=== PATIENT | male | born 1970 | race Caucasian/White ===

== ENCOUNTER 2020-08-28 10:27 | Outpatient (REF) | payer OTHER, SELFPAY | END 2020-08-28 10:28 | disposition home or self-care (01) | LOC: HO.LAB 10:27 | PROVIDERS: Visit Provider Internal Medicine | DX: Z20.828 Contact with and (suspected) exposure to other viral communicable diseases (principal) | CPT/HCPCS: 87635 ==

== ENCOUNTER 2024-08-03 15:56 | Outpatient (AMB) | payer OTHER, SELFPAY ==
--- NOTE | 2024-08-03 15:58 | AM.OFFWIN_ITS ---
Intake Vital Signs 08/03/24 16:00 Height 5 ft 7 in Weight 168 lb BMI 26.3 BP 140/80 H Blood Pressure Location Lt brachial Position Sitting Pulse 91 Pulse Source Pulse Oximeter Pulse Oximetry (%) 98 Oxygen Delivery Method Room Air Intake Visit Reasons: NUTRITIONALIST- urine infection Intake Note: Patient here for UTI that has been present for about 2 days. Pt would also like to talk about hernia in groin area that has been present for a few years and is having difficulty walking because of it. Patient Tobacco Use Status: Former Tobacco user Allergies No Known Allergies Allergy (Verified 08/03/24 16:05) Do you need a note to return to daycare/school/sports/work: No HPI HPI Comments History of Present Illness Details 53 y/o male patient who presents to the walk in clinic with c/o Urinary symptoms x 2 days. Pt is accompanied by his Son who provides translation and history. Pt also has a Large ?? Groin Hernia or Hydrocele for many years now (?10 years of more). He is having difficulty with urinating and walking due to this. He was briefly admitted at [facility] but left without being seen due to the long wait. He just moved from [place] and currently has no PCP established. He is having problems securing a new doctor, and has to wait for months for appointment. Not much medical history given or available on him. [facility] Social History Patient Tobacco Use Status: Former Tobacco user Review of Systems Const All systems reviewed & are unremarkable except as noted in HPI and below Physical Exam Vital Signs: Last Vital Signs Pulse 91 08/03/24 16:00 BP 140/80 H 08/03/24 16:00 Pulse Ox 98 08/03/24 16:00 Oxygen Delivery Method Room Air 08/03/24 16:00 BMI result Body Mass Index 26.3 Const General: cooperative and no acute distress Orientation/consciousness: patient oriented x3 Other: Pt declined examination today. There is a large Mass or bulging hernia from his Groin area - protruding through his pants. Neuro General: patient oriented x3, gait normal and moves all extremities Psych Speech and movement: Normal speech and movement present Results AMB Urinalysis, Automated UA Leukoctes 0 Cynthia/uL Last Edit by YENI Alvarado on 08/03/24 16:13 UA Nitrite Negative Last Edit by YENI Alvarado on 08/03/24 16:13 UA Urobilinogen 0.2 mg/dL Last Edit by [place] [facility] on 08/03/24 16:13 UA Protein 0 mg/dL Last Edit by [facility] on 08/03/24 16:13 UA pH 6.0 Last Edit by [place] [facility] on 08/03/24 16:13 UA Blood 0 Rambo/uL Last Edit by [place] [facility] on 08/03/24 16:13 UA Specific [place] 1.020 Last Edit by [place] [facility] on 08/03/24 16:13 UA Ketone Negative Last Edit by [place] [facility] on 08/03/24 16:13 UA Bilirubin 0 mg/dL Last Edit by [place] [facility] on 08/03/24 16:13 UA Glucose 0 mg/dL Last Edit by [place] [facility] on 08/03/24 16:13 Results Reviewed Results Reviewed: Laboratory Last Values Urine pH (Auto) 6.0 08/03/24 16:12 Specific [place] (Auto) 1.020 08/03/24 16:12 Urine Protein (Auto) 0 mg/dL 08/03/24 16:12 Glucose (UA)(Auto) 0 mg/dL 08/03/24 16:12 Urine Ketones (Auto) Negative 08/03/24 16:12 Urine Blood (Auto) 0 Rambo/uL 08/03/24 16:12 Urine Nitrite (Auto) Negative 08/03/24 16:12 Urine Bilirubin (Auto) 0 mg/dL 08/03/24 16:12 Urine Urobilinogen (Auto) 0.2 mg/dL 08/03/24 16:12 Leukocyte Esterase (Auto) 0 Cynthia/uL 08/03/24 16:12 Assessment & Plan Assessment & Plan (1) Urinary tract infection symptoms: Code(s): R39.9 - Unspecified symptoms and signs involving the genitourinary system Plan: Rapid Urinalysis negative. Pt only reports Urinary retention and difficulty voiding due to the Mass/hernia. Denies urgency, frequency or dysuria. Will try and get patient seen C[facility] at [facility] Sent Message to Mahi (senior catering sales manager). Orders: Orders AMB Urinalysis Automated Today Z13.9 - Encounter for screening, unspecified Coding Level of Care Code New Pt Level 3 (96731) Diagnoses Urinary tract infection symptoms R39.9 Time Spent (min) 15
[2024-08-03 16:00] VITALS: BP 140/80; PULSE 91; O2SAT 98; BMI 26.3
== END 2024-08-03 16:25 | disposition home or self-care (01) ==
PROVIDERS: Visit Provider Nurse Practitioner Family
DX: R39.9 Unspecified symptoms and signs involving the genitourinary system (principal); Z13.9 Encounter for screening, unspecified

== ENCOUNTER → 2024-08-03 15:56 | Outpatient (BNVA) | payer OTHER, SELFPAY | DX: R33.9 Retention of urine, unspecified (principal); R39.198 Other difficulties with micturition | CPT/HCPCS: 81003 ==

== ENCOUNTER 2025-04-15 08:55 | Outpatient (REF) | payer OTHER, SELFPAY ==
[2025-04-15 14:05] LABS: MANUAL DIFF FLAG NO
[2025-04-15 14:13] LABS: Basophils Percent Auto 0.5 % (0-2); Eosinophils Absolute Auto 0.3 X10*3/uL (0.0-0.4); Eosinophils Percent Auto 3.5 % (0-4); Hematocrit 38.9 % (42.0-52.0); Hemoglobin 12.2 g/dl (14.0-18.0); Imm Gran Abs Auto 0.04 X10*3/uL (0.00-0.03); Imm Gran Pct Auto 0.5 % (0.0-0.4); Lymphocytes Absolute Auto 2.1 X10*3/uL (1.2-4.9); Lymphocytes Percent Auto 25.1 % (20-40); Mean Corpuscular HGB Conc 31.4 g/dl (31.0-36.0); Mean Corpuscular Hemoglobin 26.8 pg (27.0-33.0); Mean Corpuscular Volume 85.3 fL (80.0-98.0); Monocytes Absolute Auto 0.8 X10*3/uL (0.1-1.2); Monocytes Percent Auto 9.5 % (2-11); Neutrophils Absolute Auto 5.2 x10*3/uL (2.0-8.3); Neutrophils Percent Auto 60.9 % (45-73); Platelet Count 419 X10*3/uL (160-400); Red Blood Count 4.56 X10*6/uL (4.60-5.80); White Blood Count 8.5 X10*3/uL (4.8-10.8)
[2025-04-15 14:22] LABS: Estimated Average Glucose 128 mg/dL; Hemoglobin A1c % 6.1 % (<6.0)
[2025-04-15 14:35] LABS: Alanine Aminotransferase 22 U/L (0-40); Albumin Level 3.9 g/dL (3.5-5.0); Alkaline Phosphatase 107 U/L (39-117); Anion Gap 10 (12-20); Aspartate Amino Transferase 26 U/L (5-37); Bilirubin Total 0.7 mg/dL (0.0-1.0); Blood Urea Nitrogen 15 mg/dL (9-16); Calcium 9.1 mg/dL (8.4-10.2); Carbon Dioxide 25 mmol/L (22-29); Chloride 106 mmol/L (96-108); Cholesterol 166 mg/dL (<200); Estimated Glomerular Filt Rate > 60; Glucose Random 107 mg/dL (60-115); HDL Cholesterol 53 mg/dL (>40); LDL Cholesterol Calculated 92 mg/dL (<100); Potassium 3.9 mmol/L (3.3-5.1); Sodium 137 mmol/L (135-145); Total Protein 8.7 g/dL (6.5-8.0); Triglycerides 108 mg/dL (<150)
[2025-04-15 14:41] LABS: PSA,Total (Free>4and<10) 3.14 ng/mL (0.00-4.00)
[2025-04-18 04:40] LABS: HIV AB/AG Nonreactive (Nonreactive); HIV Num 1 0.07 S/CO (0.00-0.99); ~HepC Num1 0.27 S/CO (0.00-0.79); ~Hepatitis C Antibody Nonreactive (Nonreactive)
== END 2025-04-15 08:56 | disposition home or self-care (01) ==
LOC: HO.CHCLDS 08:55
PROVIDERS: Visit Provider Internal Medicine
DX: Z00.00 Encounter for general adult medical examination without abnormal findings (principal); Z12.5 Encounter for screening for malignant neoplasm of prostate
CPT/HCPCS: 36415; 80053; 80061; 83036; 84153; 84443; 85025; 86803; 87389

== ENCOUNTER 2025-05-17 11:08 | Outpatient (AMB) | payer OTHER, SELFPAY ==
--- NOTE | 2025-05-17 11:20 | A.OFFVIS_ITS ---
Vital Signs 3 05/17/25 11:29 Height 5 ft 7 in Weight 180 lb BMI 28.2 BP 164/83 H Blood Pressure Location Lt brachial Position Sitting Pulse 92 Intake Visit Reasons: ingunial hernia Intake Note: Patient is seen in office for evaluation and treatment of a a left inguinal hernia. Pt c/o: onset yrs, use to work in construction, lump left groin increase/decrease, denies n/v/d/c, no imaging, has not seen a PCP in yrs Imaging: [facility] Creative Coordinator Required: Yes Creative Coordinator Services: Creative Coordinator Offered & Declined Accompanied by: Spouse Allergies No Known Allergies Allergy (Verified 05/17/25 11:27) Medication List - Last Reconciled 05/17/25 by Juan Jose Loaiza MD No Known Home Meds HPI Comments Details: 54-year-old male patient presenting for evaluation of a large left inguinal hernia. The hernia has been present for least 10 years and has gradually increased in size. 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 He notes the lump all the time especially with standing or sitting. The hernia does not completely decrease in size when in the supine position. He denies problems with nausea, vomiting, diarrhea, or constipation. He denies any previous history of hernia surgery. He does report recently having a positive Cologuard test in his awaiting evaluation by Gastroenterology to arrange a colonoscopy. He presents today to discuss repair of this large left inguinal hernia. [facility] Family History Father Cancer of unknown origin Brother Prostate cancer Social History Alcohol intake: never Patient Tobacco Use Status: Former Tobacco user Review of Systems Const All systems reviewed & are unremarkable except as noted in HPI and below Physical Exam Const General: cooperative and no acute distress Nutritional Appearance: well nourished Orientation/consciousness: patient oriented x3 Limitations: no limitations HEENT Head: Yes normocephalic and Yes atraumatic Ears: hearing grossly normal bilaterally Resp Effort & Inspection: normal respiratory effort, no audible wheezes, no cough and no respiratory distress Cardio Jugular venous distension: no JVD GI Inspection: Yes normal to inspection Palpation (GI): Soft to palpation, nontender, no guarding, not rigid, No hepatosplenomegaly present and Hernia present direct inguinal on the left (Non reducible) Percussion: Yes normal to percussion Auscultation: normal bowel sounds Rectal Exam - Male: Yes deferred Abdomen image: 2 1. Very large non reducible (incarcerated) left inguinal hernia extending into the scrotal sac Skin Other: Warm, dry, no rash Neuro General: patient oriented x3 Extrem General: Yes no clubbing, cyanosis or edema Assessment & Plan Assessment & Plan (1) Positive colorectal cancer screening using Cologuard test: Code(s): R19.5 - Other fecal abnormalities Category: Medical (2) Incarcerated left inguinal hernia: Code(s): K40.30 - Unilateral inguinal hernia, with obstruction, without gangrene, not specified as recurrent Category: Medical Plan 54-year-old male patient presenting with a longstanding left inguinal hernia which has become quite large and non reducible. There appears to be a large amount of colon within this hernia sac to the point where there may be loss of domain. Patient also reports a positive Cologuard test and needs evaluation by Gastroenterology. I have placed an urgent request for gastroenterology consultation to expedite evaluation for colonoscopy which needs to be completed prior to repair of this exceptionally large inguinal hernia. In addition I would like to obtain a CT abdomen and pelvis with oral contrast to better evaluate the contents of the left inguinal hernia. After discussion of the procedure, risks, and alternatives, the patient does consent to repair of this large left inguinal hernia with mesh. Orders: Orders 2 CT abdomen pelvis wo IV con Today K40.30 - Unilateral inguinal hernia, with obstruction, without gangrene, not specified as recurrent, R19.5 - Other fecal abnormalities Referrals 2 Gastroenterology Referral K40.30 - Unilateral inguinal hernia, with obstruction, without gangrene, not specified as recurrent, R19.5 - Other fecal abnormalities, Z12.11 - Encounter for screening for malignant neoplasm of colon Coding Level of Care Code New Pt Level 4 (80001) Diagnoses Positive colorectal cancer screening using Cologuard test R19.5 Incarcerated left inguinal hernia K40.30
[2025-05-17 11:29] VITALS: BP 164/83; PULSE 92; BMI 28.2
--- OUTSIDE RECORDS SUMMARY | 2025-05-17 12:33 | XMS_ITS | Encounter Summary ---
Author Organization [employer] Address [address] [facility] 7 [place] [address] Care Team Providers Care Core Inserter Name Role Phone Rodri Razo MD Primary Care Prov ider Reason for Visit * Reason Onset Date Comments Referral 05/13/2025 Encounter Details Date Type Department Care Team ([facility] st Contact Info) Description 05/13/2025 Telephone [facility] MED & PEDS [address] [place] [address] Rodri Razo MD [address] [place] [address] Referral Social History Tobacco Use Types Packs/Day Years Used Date Smoking Tobacco: Former Cigarettes 1 10 S tarted: 2008 Smokeless Tobacco: Never Alcohol Use Standard Drinks/Week Comments Never 0 (1 standard drink = 0.6 oz pur e alcohol) Depression Answer Date Recorded Patient Health Questionnaire-9 Score 2 01/27/2025 Patient Health Questionnaire-9 Score 2 01/27/2025 Last PHQ-9: Questionnaire Data Not on file 0 01/27/2025 Housing Stability Answer Date Recorded What is your housing situation today? I have whitney sing 01/27/[address] you li ve. Do you have problems with any of the following? None of the above 01/27/2025 Food Insecurity Answer Date Recorded Within the past 12 months, y ou worried that your food would run out before you got money to buy more: Never True 01/27/2025 Within the past 12 months,th e food you bought just didn't last and you didn't have enough money to get more: Never True 03/ Transportation Answer Date Recorded In the past 12 months, has l ack of transportation kept you from medical appts, meetings, work or from getting things needed for daily living? No 01/27/2025 Utilities Answer Date Recorded In the past 12 months, has t he electric, gas, oil or water company threatened to shut off services in your home? No 01/27/2025 Depression Answer Date Recorded Patient Health Questionnaire-2 Score 0 01/27/2025 Internet Access Answer Date Recorded Internet Access Q1 Yes 01/27/2025 Internet Access Q2 Not on file 01/27/2025 Sex and Gender Information Value Date Recorded Sex Assigned at Male 09/02/2022 10:31 AM EDT Legal Sex Male 10:31 AM EDT Gender Identity Choose not to disclose 10:31 AM EDT Sexual Orientation Choose not to disclose 2021 10:31 AM EDT documented as of this encounter Miscellaneous Notes * Telephone Encounter - Chriss Horner - 05/13/2025 12:38 PM EDT Tc from spouse reporting that [facility] has not received the referral for the Gastro. Please fax over the referral again. documented in this encounter Plan of Treatment Upcoming Encounters Date Type Department Care Team (Late st Contact Info) Description 06/01/2025 3:00 PM EDT Telemedicine [facility] MED & PEDS [address] [place] [address] Rodri Razo MD [address] [place] [address] documented as of this encounter Visit Diagnoses Not on filedocumented in this encounter Additional Health Concerns Assessment Noted Time PHQ-9 Depression Total Score: 2 01/28/20 9:02 AM EDT documented as of this encounter Care Teams Core Inserter Relationship Specialty Start Date End Date Rodri Razo MD [address] [place] [address] PCP - General Internal Medicine 02/01/25 documented as of this encounter
== END 2025-05-17 11:42 | disposition home or self-care (01) ==
PROVIDERS: PCP Internal Medicine; Visit Provider Surgery
DX: R19.5 Other fecal abnormalities (principal); K40.30 Unilateral inguinal hernia, with obstruction, without gangrene, not specified as recurrent
CPT/HCPCS: 99204

== ENCOUNTER → 2025-05-17 11:08 | Outpatient (BNVA) | payer OTHER, SELFPAY | PROVIDERS: PCP Internal Medicine; Visit Provider Surgery | DX: K40.30 Unilateral inguinal hernia, with obstruction, without gangrene, not specified as recurrent (principal); R19.5 Other fecal abnormalities | CPT/HCPCS: 99202 ==

== ENCOUNTER 2025-05-19 09:43 | Outpatient (AMB) | payer OTHER, SELFPAY ==
--- NOTE | 2025-05-19 09:53 | MHC.OFFVIS ---
Vital Signs 05/19/25 09:56 Height 5 ft 7 in Weight 176 lb 5.917 oz BMI 27.6 BP 146/78 H Blood Pressure Location Lt brachial Position Sitting Pulse 82 Intake Visit Reasons: pre op clearence/surgeon for HH Intake Note: Arthur presents in the office as a new patient for a pre op clearance. CC: States that he needs a colonoscopy and has a hiatal herenia. Space Systems Operations Superintendent Required: Yes Space Systems Operations Superintendent Name: someone with him to interpret Allergies No Known Allergies Allergy (Verified 05/17/25 11:27) Medication List - Last Reconciled 05/19/25 by Mariam Calero CNP ascorbic acid (vitamin C) 250 mg PO DAILY bisacodyl 5 mg PO ONCE 1 day blood pressure test kit-large (Omron Blood Pressure Monitor-3 Series kit) As directed magnesium glycinate mg PO multivitamin 1 tab PO DAILY omeprazole 20 mg PO DAILY polyethylene glycol 3350 (Miralax) 238 grams PO ONCE HPI HPI pre op clearence/surgeon for HH: Details: Patient is a 54-year-old male. Referred by General surgery for positive Cologuard. Patient is accompanied by his who is translating during this visit. Arthur presents with concerns regarding a positive Cologuard test 04/26/25, with a referral for further evaluation via colonoscopy. Patient has not previously engaged in regular medical care and has not had prior surgeries or hospitalizations. He denies constipation, diarrhea, blood in stools, or abdominal pain. He also denies nausea and vomiting. Chronic heartburn has been present for years, primarily managed with Tums and currently with [id number] Pepcid. Heartburn is triggered by bread and spicy foods, with episodes occurring most days. There is associated regurgitation, but no dysphagia. No other gastrointestinal symptoms are reported. Social hx: -denies ETOH use - denies recreational drug use - former smoker, cessation 2019 - family hx as below -denies personal hx of CA -denies significant cardiopulmonary history - no prior surgical history requiring anesthesia. [facility] Medical History (Updated 05/19/25 @ 17:30 by Mariam Calero CNP) Acid reflux Anemia Family History Father Cancer of unknown origin Brother Prostate cancer Social History (Reviewed 05/19/25 @ 09:57 by KIRT Avery Alcohol intake: never Patient Tobacco Use Status: Former Tobacco user Review of Systems Const Reports as per [facility] ENT Reports as per [facility] Card Reports as per HPI Resp Reports as per HPI GI Reports as per [facility] Reports as per HPI Physical Exam Vital Signs: Last Vital Signs Pulse 82 05/19/25 09:56 BP 146/78 H 05/19/25 09:56 BMI result Body Mass Index 27.6 Const General: healthy appearing, no acute distress and well developed Nutritional Appearance: average body habitus Orientation/consciousness: patient oriented x3 HEENT Head: Yes normal to inspection, Yes normocephalic and Yes atraumatic Face and sinus: Yes normal facial exam Eyes General: appearance normal, both eyes and all related structures Neck Neck: Yes normal visual inspection Resp Effort & Inspection: normal respiratory effort, able to speak in complete sentences, no tracheal deviation and symmetric chest movement Auscultation: clear to auscultation bilaterally Cardio Jugular venous distension: no JVD Rate: regular rate Rhythm: regular rhythm Heart sounds: S1 normal heart sound present, S2 normal heart sound present, no gallops and no murmurs GI Inspection: Yes normal to inspection and No distended Palpation (GI): Soft to palpation, not firm, nontender and No hepatosplenomegaly present Auscultation: normal bowel sounds Neuro General: patient oriented x3 Gait exam (Neuro): Normal gait present Psych Appearance: grossly normal Mental Status: mental status grossly normal Speech and movement: Normal speech and movement present Affect: normal affect Attitude: cooperative Thought process: Normal thought process present Thought content: Normal thought content present Insight: Good insight present (Psych) Judgement: Good judgement present (Psych) Assessment & Plan Assessment & Plan (1) Positive colorectal cancer screening using Cologuard test: Code(s): R19.5 - Other fecal abnormalities Category: Medical Plan: Positive Cologuard obtained 04/26/2025 necessitates further investigation. Additional Tests: Colonoscopy scheduled within 4-6 weeks. Medications: -prescriptions for laxative tablets and MiraLax sent to pharmacy; instructions for Gatorade purchase and clear liquid diet given. Patient educated on scheduling process, procedure preparation, including avoiding certain foods and ensuring clear liquid intake Advised on necessity for ride post-procedure due to sedation. (2) Acid reflux: Code(s): K21.9 - Gastro-esophageal reflux disease without esophagitis Category: Medical Qualifiers: Esophagitis presence: esophagitis presence not specified Qualified Code(s): K21.9 - Gastro-esophageal reflux disease without esophagitis Plan: Chronic history of heartburn and regurgitation managed with OTC medications. Additional Tests: Upper endoscopy recommended to assess esophagus and stomach due to long-term reflux history. Medications: Start Omeprazole 20mg oral daily before meals. Encouraged to take omeprazole as prescribed, taken at least 30-60 minutes before a meal. Education on GERD prevention : -Advised against heavy meals; encouraged small, frequent meals instead of large ones. - Instructed to remain upright for 2?3 hours after eating. - Advised to avoid late-night meals, spicy foods, caffeine, alcohol, known dietary triggers, and tight-fitting clothing. - Emphasis placed on gradual implementation of lifestyle changes to improve adherence and symptom control. (3) Anemia: Code(s): D64.9 - Anemia, unspecified Category: Medical Qualifiers: Anemia type: unspecified type Qualified Code(s): D64.9 - Anemia, unspecified Plan: Mild microcytic anemia noted on labs collected last month. We will obtain repeat and include iron studies. Plan Follow-up after endoscopy or sooner as needed Time: I spent a total of 45 minutes on the date of encounter which includes: Preparing to see the patient (reviewed previous documentation, test results and medical history) Performing a medically appropriate exam and/or evaluation Ordering medications, tests, and procedures Documenting clinical information in the health record Orders: Orders IRON PROFILE Today D64.9 - Anemia, unspecified Complete Blood Count Auto Diff Today D64.9 - Anemia, unspecified Medications: New bisacodyl Take four tablets once for 1 day per colonoscopy instructions 5 mg PO ONCE 1 day 4 tabs 0RF omeprazole Take one tablet daily. Best taken on an empty, 30 minutes before eating. 20 mg PO DAILY 90 caps 1RF polyethylene glycol 3350 (Miralax) per colonoscopy prep instructions 238 grams PO ONCE 238 grams 0RF omeprazole Take one tablet daily. Best taken on an empty, 30 minutes before eating. 20 mg PO DAILY 90 caps 1RF bisacodyl Take four tablets once for 1 day per colonoscopy instructions 5 mg PO ONCE 4 tabs 0RF 1 day polyethylene glycol 3350 (Miralax) per colonoscopy prep instructions 238 grams PO ONCE 238 grams 0RF Coding Level of Care Code New Pt New Pt Level 4 (40093) Patient Type New Diagnoses Positive colorectal cancer screening using Cologuard test R19.5 Gastroesophageal reflux disease, unspecified whether esophagitis present K21.9 Esophagitis presence: esophagitis presence not specified Anemia, unspecified type D64.9 Anemia type: unspecified type
[2025-05-19 09:56] VITALS: BP 146/78; PULSE 82; BMI 27.6
--- OUTSIDE RECORDS SUMMARY | 2025-05-19 10:05 | XMS_ITS | Encounter Summary ---
Author Organization [employer] Address [address] [facility] [address] [place] [address] Care Team Providers Care Sample Collector Name Role Phone Rodri Razo MD Primary Care Prov ider Reason for Visit * Reason Onset Date Comments Referral 05/13/2025 Encounter Details Date Type Department Care Team ([facility] st Contact Info) Description 05/13/2025 Telephone [facility] CHC MED & PEDS [address] [place] [address] Rodri Razo MD [address] [place] [address] Referral Social History Tobacco Use Types Packs/Day [...] is your housing situation today? I have whitneykehinde ken 01/27/[address] you li [...] PM EDT Tc from spouse reporting that [facility] has not received the referral for the Gastro. Please fax over the referral again. documented in this encounter Plan of Treatment Upcoming Encounters Date Type Department Care Team (Late st Contact Info) Description 06/01/2025 3:00 PM EDT Telemedicine [facility] MED & PEDS [address] [place] [address] Rodri Razo MD [address] [place] [address] documented as of this encounter Visit Diagnoses Not on filedocumented in this encounter Additional Health Concerns Assessment Noted Time PHQ-9 Depression Total Score: 2 01/28/20 9:02 AM EDT documented as of this encounter Care Teams Sample Collector Relationship Specialty Start Date End Date Rodri Razo MD [address] [place] [address] PCP - General Internal Medicine 02/01/25 documented as of this encounter
== END 2025-05-19 10:42 | disposition home or self-care (01) ==
LOC: HO.HGI 09:44
PROVIDERS: PCP Internal Medicine; Visit Provider Nurse Practitioner Family
DX: R19.5 Other fecal abnormalities (principal); K21.9 Gastro-esophageal reflux disease without esophagitis; D64.9 Anemia, unspecified
CPT/HCPCS: 99204

== ENCOUNTER → 2025-05-19 09:43 | Outpatient (BNVA) | payer OTHER, SELFPAY | PROVIDERS: PCP Internal Medicine; Visit Provider Nurse Practitioner Family | DX: R19.5 Other fecal abnormalities (principal); K21.9 Gastro-esophageal reflux disease without esophagitis; D64.9 Anemia, unspecified | CPT/HCPCS: 99202 ==

== ENCOUNTER 2025-05-20 09:00 | Outpatient (REF) | payer OTHER, SELFPAY ==
--- OUTSIDE RECORDS SUMMARY | 2025-05-20 09:03 | XMS_ITS | Encounter Summary ---
Author Organization [employer] Address [address] [facility] [address] [place] [address] Care Team Providers Care Internal Controls Manager Name Role Phone Rodri Razo MD Primary Care Prov ider Reason for Visit * Reason Onset Date Comments Referral 05/13/2025 Encounter Details Date Type Department Care Team ([facility] st Contact Info) Description 05/13/2025 Telephone [facility] CHC MED & PEDS [address] [place] [address] Rodri Razo MD [address] [place] [address] Referral Social History Tobacco Use Types Packs/Day Years Used Date Smoking Tobacco: Former Cigarettes 1 10 S tarted: 2007 Smokeless Tobacco: Never Alcohol Use Standard Drinks/Week [...] PM EDT Tc from spouse reporting that [facility] has not received the referral for the Gastro. Please fax over the referral again. documented in this encounter Plan of Treatment Upcoming Encounters Date Type Department Care Team (Late st Contact Info) Description 06/01/2025 3:00 PM EDT Telemedicine [facility] MED & PEDS [address] [place] [address] Rodri Razo MD [address] [place] [address] documented as of this encounter Visit Diagnoses Not on filedocumented in this encounter Additional Health Concerns Assessment Noted Time PHQ-9 Depression Total Score: 2 01/28/20 9:02 AM EDT documented as of this encounter Care Teams Internal Controls Manager Relationship Specialty Start Date End Date Rodri Razo MD [address] [place] [address] PCP - General Internal Medicine 02/01/25 documented as of this encounter
[2025-05-20 13:49] LABS: MANUAL DIFF FLAG NO
[2025-05-20 14:00] LABS: Hematocrit 37.6 % (42.0-52.0); Hemoglobin 11.7 g/dl (14.0-18.0); Imm Gran Abs Auto 0.03 X10*3/uL (0.00-0.03); Imm Gran Pct Auto 0.3 % (0.0-0.4); Lymphocytes Absolute Auto 2.0 X10*3/uL (1.2-4.9); Mean Corpuscular HGB Conc 31.1 g/dl (31.0-36.0); Mean Corpuscular Hemoglobin 26.1 pg (27.0-33.0); Mean Corpuscular Volume 83.7 fL (80.0-98.0); NRBC Abs Auto 0.000 X10*3/uL (0.0-0.012); NRBC Pct Auto 0.0 /100WBC (0.0-0.2); Platelet Count 430 X10*3/uL (160-400); Red Blood Count 4.49 X10*6/uL (4.60-5.80); White Blood Count 9.9 X10*3/uL (4.8-10.8)
[2025-05-20 14:25] LABS: Iron 26 mcg/dL (45-160); Percent Iron Saturation 8 % (15-50); Total Iron Binding Capacity 318 mcg/dL (228-428); Unsaturated Iron Binding 292 ug/dL
== END 2025-05-20 09:01 | disposition home or self-care (01) ==
LOC: HO.CHCLDS 09:00
PROVIDERS: Visit Provider Nurse Practitioner Family
DX: D64.9 Anemia, unspecified (principal)
CPT/HCPCS: 36415; 83540; 85025

== ENCOUNTER 2025-05-27 08:36 | Outpatient (REF) | payer OTHER, SELFPAY ==
--- NOTE | ~2025-05-27 | CT_ITS ---
EXAMINATION: CT PELVIS WITHOUT IV CONTRAST HISTORY: K40.30 - Unilateral inguinal hernia, with obstruction, without gangrene,... COMPARISON: There are no prior studies available for comparison. TECHNIQUE: CT scan of the pelvis was performed without contrast using standard departmental protocol. Coronal and sagittal reformatted images were generated and reviewed. The patient received oral contrast material. This CT exam was performed with one or more of the following dose reduction techniques: automated exposure control, adjustment of the mA and/or kV according to patient size, use of iterative reconstruction technique. DLP: 622 mGy-cm FINDINGS: There is a large left-sided inguinal hernia. Evaluation is somewhat limited due to the large size of the hernia. The hernia sac appears to course medial to the inferior epigastric vessels, consistent with a direct hernia. The hernia contains nearly the entire colon (except for the rectosigmoid colon) as well as the appendix, and a large portion of the small bowel. There is no evidence of bowel obstruction. There is no infiltration of the fat within the hernia. The opening of the hernia sac measures approximately 4.5 cm in diameter. The urinary bladder is unremarkable. The prostate is normal in size. There is no ascites in the pelvis. There are enlarged left obturator lymph nodes measuring up to 2.[address]/CT pelvis wo IV con IMPRESSION: Findings consistent with a left-sided direct inguinal hernia as described. Electronically signed by: Karthikeyan Lauren MD 05/27/2025 12:10 PM EDT
--- OUTSIDE RECORDS SUMMARY | 2025-05-27 08:48 | XMS_ITS | Encounter Summary ---
Author Organization [employer] Address [address] [facility] 7 [place] [address] Care Team Providers Care Clinical Trial Associate Name Role Phone Rodri Razo MD Primary Care Prov ider Reason for Visit * Reason Onset Date Comments Referral 05/13/2025 Encounter Details Date Type Department Care Team ([facility] st Contact Info) Description 05/13/2025 Telephone [facility] CHC MED & PEDS [address] [place] [address] Rodri Razo MD [address] [place] [address] Referral Social History Tobacco Use Types Packs/Day [...] PM EDT Tc from spouse reporting that [facility] has not received the referral for the Gastro. Please fax over the referral again. documented in this encounter Plan of Treatment Upcoming Encounters Date Type Department Care Team (Late st Contact Info) Description 06/01/2025 3:00 PM EDT Telemedicine [facility] MED & PEDS [address] [place] [address] Rodri Razo MD [address] [place] [address] documented as of this encounter Visit Diagnoses Not on filedocumented in this encounter Additional Health Concerns Assessment Noted Time PHQ-9 Depression Total Score: 2 01/28/20 9:02 AM EDT documented as of this encounter Care Teams Clinical Trial Associate Relationship Specialty Start Date End Date Rodri Razo MD [address] [place] [address] PCP - General Internal Medicine 02/01/25 documented as of this encounter
[2025-05-27] MEDS: Barium Sulfate Oral (Vanilla) 450 ML ORAL.SUSP 900 ML PO (11:44)
== END 2025-05-27 08:37 | disposition home or self-care (01) ==
LOC: HO.CT 08:36
PROVIDERS: Absent Provider Internal Medicine; PCP Internal Medicine; Visit Provider Surgery
DX: K40.30 Unilateral inguinal hernia, with obstruction, without gangrene, not specified as recurrent (principal)
CPT/HCPCS: 72192

== ENCOUNTER → 2025-05-27 08:46 | Outpatient (BNV) | payer OTHER, SELFPAY | PROVIDERS: Absent Provider Internal Medicine; PCP Internal Medicine; Visit Provider Radiology Diagnostic Radiology | DX: K40.90 Unilateral inguinal hernia, without obstruction or gangrene, not specified as recurrent (principal) | CPT/HCPCS: 72192 ==

== ENCOUNTER 2025-06-28 07:05 | Day surgery (SDC) | payer OTHER, SELFPAY ==
--- OUTSIDE RECORDS SUMMARY | 2025-06-14 07:30 | XMS_ITS | Encounter Summary ---
Author Organization [employer] Address [address] [facility] 7 [place] [address] Care Team Providers Care Linux Kernel Engineer Name Role Phone Rodri Razo MD Primary Care Prov ider Reason for Visit * Reason Onset Date Comments Referral 05/13/2025 Encounter Details Date Type Department Care Team ([facility] st Contact Info) Description 05/13/2025 Telephone [facility] CHC MED & PEDS [address] [place], [place] [phone] Rodri Razo MD [address] [place] [address] Referral Social History Tobacco Use Types Packs/Day [...] your housing situation today? I have whitney ken 01/27/[address] you [...] Sex Male 10:31 AM EDT Gender Identity Male 06/01/2025 3:21 PM EDT Sexual Orientation Straight 06/01/2025 3: 21 PM EDT documented as of this encounter Miscellaneous Notes * Telephone Encounter - Chriss Horner - 05/13/2025 12:38 PM EDT Tc from spouse reporting that [facility] has not received the referral for the Gastro. Please fax over the referral again. documented in this encounter Plan of Treatment Upcoming Encounters Date Type Department Care Team (Late st Contact Info) Description 07/05/2025 10:30 AM EDT Telemedicine [facility] MED & PEDS [address] [place] [address] Rodri Razo MD [address] [place] [address] documented as of this encounter Visit Diagnoses Not on filedocumented in this encounter Additional Health Concerns Assessment Noted Time PHQ-9 Depression Total Score: 2 01/28/20 9:02 AM EDT documented as of this encounter Care Teams Linux Kernel Engineer Relationship Specialty Start Date End Date Rodri Razo MD [address] [place] [address] PCP - General Internal Medicine 02/01/25 documented as of this encounter
--- NOTE | 2025-06-27 12:30 | HO.ANESPROP2 ---
Documented by User: Samira Villeda NP 06/27/25 12:31 HPI - Anesthesia Eval Consult details Narrative: 54yo M for Upper Endoscopy and Colonoscopy PMFSH Active Problems Active Problems: All Active Problems Acid reflux (Acute) Anemia (Acute) Incarcerated left inguinal hernia (Acute) Positive colorectal cancer screening using Cologuard test (Acute) Colon cancer screening (Acute) Past Medical History Medical History (Updated 05/19/25 @ 17:30 by Mariam Calero CNP) Acid reflux Anemia Family History Family History Father Cancer of unknown origin Brother Prostate cancer Social History Social History Are you a primary transitional care manager to a significant other at home: No Do you presently have visiting nurse or other home services: No Alcohol intake: never Patient Tobacco Use Status: Former Tobacco user Second Hand Smoke Exposure: No Use of substances other than those prescribed or required for medical reasons: No Have you been hit, kicked, punched, or otherwise hurt by someone within the past year? If so, by whom?: No Are you DNR?: No Advance Directives: No Advance Directives Information Provided: Yes Advance Directives on File: No Poor oral hygiene: No Meds Allergies Allergy/AdvReac Type Severity Reaction Status Date / Time No Known Allergies Allergy Verified 05/17/25 11:27 Home Medications ?Medication ?Instructions ?Recorded ?Confirmed ?Last Taken ?Type ascorbic acid (vitamin C) 250 mg 250 mg PO DAILY 05/19/25 06/28/25 Unknown History tablet blood pressure test kit-large #1 ea 05/19/25 06/28/25 Unknown History (Omron Blood Pressure Monitor-3 Series kit) magnesium glycinate mg PO 05/19/25 05/19/25 Unknown History multivitamin 1 tab PO DAILY 05/19/25 06/28/25 Unknown History hydrochlorothiazide 25 mg tablet 25 mg PO DAILY 06/28/25 06/28/25 Unknown History Exam Pertinent Lab Results Pertinent Lab Results: Laboratory Tests 04/15/25 05/20/25 09:00 09:02 WBC 9.9 Hgb 11.7 L Hct 37.6 L Plt Count 430 H Sodium 137 Potassium 3.9 Chloride 106 Carbon Dioxide 25 BUN 15 Creatinine 0.71 Assessment and Plan Assessment Anesthesia Assessment: Chart Reviewed Documented by User: Nathalia Cabrera MD 06/28/25 08:20 [facility] Past Medical History Medical History (Updated 05/19/25 @ 17:30 by Mariam Calero CNP) Acid reflux Anemia Family History Family History Father Cancer of unknown origin Brother Prostate cancer Family history of problems with anesthesia: No Surgical History History of Problems with Anesthesia: No Social History Social History Are you a primary transitional care manager to a significant other at home: No Do you presently have visiting nurse or other home services: No Alcohol intake: never Patient Tobacco Use Status: Former Tobacco user Second Hand Smoke Exposure: No Use of substances other than those prescribed or required for medical reasons: No Have you been hit, kicked, punched, or otherwise hurt by someone within the past year? If so, by whom?: No Are you DNR?: No Advance Directives: No Advance Directives Information Provided: Yes Advance Directives on File: No Poor oral hygiene: No Meds Allergies Allergy/AdvReac Type Severity Reaction Status Date / Time No Known Allergies Allergy Verified 05/17/25 11:27 Home Medications ?Medication ?Instructions ?Recorded ?Confirmed ?Last Taken ?Type ascorbic acid (vitamin C) 250 mg 250 mg PO DAILY 05/19/25 06/28/25 Unknown History tablet blood pressure test kit-large #1 ea 05/19/25 06/28/25 Unknown History (Omron Blood Pressure Monitor-3 Series kit) magnesium glycinate mg PO 05/19/25 05/19/25 Unknown History multivitamin 1 tab PO DAILY 05/19/25 06/28/25 Unknown History hydrochlorothiazide 25 mg tablet 25 mg PO DAILY 06/28/25 06/28/25 Unknown History Exam Airway Mallampati Class: III TM Dist: >3cm Neck ROM: Full Assessment and Plan Assessment Anesthesia Assessment: Anesthesia Plan Discussed Final Anesthetic Review Family History of Problems with Anesthesia: No History of Problems with Anesthesia: No NPO: Yes ASA Class: II Final Preanesthetic Review: No Changes in Pt Med Stat, Meds/Allgs Chart Reviewed, Consent Obtained/Reviewed and Anes Risks/Benef Reviewed Patient Risk: Low Procedure Risk: Low Anesthetic Plan Anesthetic Plan: TIVA Disposition: Standard PACU
[2025-06-28 07:19] VITALS: BMI 27.6
[2025-06-28 07:42] VITALS: BP 152/77; PULSE 83; RESP 16; TEMP 36.7; O2SAT 97
[2025-06-28] MEDS: Lactated Ringers 1,000 ML 100 ML IVCONT (07:45)
--- NOTE | 2025-06-28 08:43 | MHC.SHP ---
Pre-Procedural Eval Section A - 24 Hr Update-Section A only Date of Service: 06/28/25 Section B - Complete if H&P > 30 days Chief Complaint: Other fecal abnormalities,gerd, Details of Present Illness: Acid reflux Anemia Family History Father Cancer of unknown origin Brother Prostate cancer Present Medications: see Short Stay Collaborative assessment Allergies: Allergies Allergy/AdvReac Type Severity Reaction Status Date / Time No Known Allergies Allergy Verified 05/17/25 11:27 Review of Systems Review of Systems Comment: Ten point ROS negative Exam Exam Comment: Gen appear: No acute distress HEENT: no icterus Chest: No overt resp distress Abd: soft, nontender, nondistended Psych: Stable affect, answering questions appropriately Neuro: A/Ox3 noted to move all extremities spontaneously Ext: no peripheral edema Plan Diagnosis/Plan: Unchanged I have reviewed the history and physical and performed a pertinent physical examination on my patient. No changes have occurred unless specified. Time Spent With Patient Time: Total time managing care of this patient today ____ minutes.
[2025-06-28 09:23] VITALS: BP 94/47; PULSE 68; RESP 15; TEMP 36.6; O2SAT 96
--- NOTE | 2025-06-28 09:25 | P.OPN-COLO_ITS ---
Colonoscopy Operative Note Operative Note Date of Service: 06/28/25 Narrative: Procedure: Upper endoscopy and colonoscopy Indication: Anemia, positive cologuard Endoscopist: Hannah Soriano MD Anesthesia Provider: Dr Nathalia Cabrera Anesthesia type: MAC Instrument: [id number]-[id number] and [id number]-[id number] EGD Procedure:?? The procedure, indications, preparation and potential complications were reviewed with the patient, who indicated understanding and gave written informed consent to proceed. The endoscope was introduced through the mouth, and advanced to the 2nd part of the duodenum. The mucosa was carefully examined on slow withdrawal of the endoscope. The patient tolerated the procedure well. There were no immediate complications.? EGD Findings:? * Esophagus:? Normal esophageal mucosa was noted. The Z-line was at 43 cm and displaced by a hiatal hernia with the diaphragmatic pinch at 48 cm. The Z- line was irregular up to 42 cm. Cold forceps biopsies were taken from GE junction to rule out Meyers's esophagus. * Stomach:? Normal gastric mucosa. Retroflexion was performed in the cardia that showed Hill grade III hiatal hernia. Random cold forceps biopsies were taken from the stomach. * Duodenum:? Normal duodenal mucosa. Cold forceps biopsies were taken from the duodenal bulb and 2nd portion of the duodenum to rule out celiac sprue. Colonoscopy Procedure:? The patient was then turned for the colonoscopy. A digital rectal exam was pe rformed which was normal.? A distal attachment cap was affixed to the tip of the scope and the colonoscope was then inserted through the anus and advanced through the colon and advanced to the cecum at 75 cm and terminal ileum.? Appendiceal orifice and ileocecal valve were identified. Mucosa was carefully examined under high definition white light as the instrument was slowly withdrawn in a retrograde panoramic fashion. Retroflexion was performed in rectum. The procedure was not difficult. The quality of the prep was BBPS: 2+3+2 = adequate Withdrawal time 9 minutes Limitations: No limitations Findings: Mucosa: Normal colon and terminal ileum mucosa. Cold forceps biopsies were taken of the right and left side of the colon to rule out microscopic colitis. Protruding lesions: * One sessile polyp of size 4 mm noted in the sigmoid colon. Cold snare polypectomy was performed. The polyp was completely removed and retrieved. * Medium internal hemorrhoids without stigmata of recent bleeding. Impression: 1. Normal esophagus (biopsy) 2. Hiatal hernia 3. Normal stomach (biopsy) 4. Normal duodenum (biopsy) 5. Normal colon and terminal ileum mucosa (biopsy) 6. One polyp removed 7. Internal hemorrhoids Recommendations:?? * Follow-up path results * Avoid NSAIDs * H Pylori treatment if biopsies + * Repeat colonoscopy for CRC screening in 7 years if polyp is an adenoma * Patient mentioned easy bleeding from the gums and nose. He was also noted to have more than expected bleeding from biopsies. He was advised to explore further evaluation through his PCP.
[2025-06-28 09:38] VITALS: BP 107/65; PULSE 65; RESP 16; TEMP 36.3; O2SAT 97
== END 2025-06-28 10:19 | disposition home or self-care (01) ==
PROVIDERS: PCP Internal Medicine; Visit Provider Internal Medicine
PROC: (CPT 45385; principal; 2025-06-28 08:30)
DX: R19.5 Other fecal abnormalities (principal); D64.9 Anemia, unspecified; K63.5 Polyp of colon; K64.8 Other hemorrhoids; K21.9 Gastro-esophageal reflux disease without esophagitis; K29.50 Unspecified chronic gastritis without bleeding; B96.81 Helicobacter pylori [H. pylori] as the cause of diseases classified elsewhere; K22.70 Barrett's esophagus without dysplasia; K44.9 Diaphragmatic hernia without obstruction or gangrene
CPT/HCPCS: 45385; 45380; 43239; 88305; 88313; 88342; J2003; J2704

== ENCOUNTER → 2025-06-28 07:05 | Outpatient (BNV) | payer OTHER, SELFPAY | PROVIDERS: PCP Internal Medicine; Visit Provider Internal Medicine | DX: Z12.11 Encounter for screening for malignant neoplasm of colon (principal); R19.5 Other fecal abnormalities; D12.5 Benign neoplasm of sigmoid colon; K64.8 Other hemorrhoids; D64.9 Anemia, unspecified; K44.9 Diaphragmatic hernia without obstruction or gangrene | CPT/HCPCS: 43239; 45385 ==

== ENCOUNTER 2025-07-20 05:42 | Day surgery (SDC) | payer OTHER, SELFPAY ==
--- OUTSIDE RECORDS SUMMARY | 2025-06-27 11:47 | XMS_ITS | Encounter Summary ---
Author Organization [employer] Address [address] [facility] 7 [place] [address] Care Team Providers Care Assembler For Puller Over Machine Name Role Phone Rodri Razo MD Primary Care Prov ider Reason for Visit * Reason Onset Date Comments Referral 05/13/2025 Encounter Details Date Type Department Care Team ([facility] st Contact Info) Description 05/13/2025 Telephone [facility] CHC MED & PEDS [address] [place], [place] [phone] Rodri Razo MD [address] [place] [address] Referral Social History Tobacco Use Types Packs/Day [...] Info) Description 07/05/2025 10:30 AM EDT Telemedicine [facility] MED & PEDS [address] [place] [address] Rodri Razo MD [address] [place] [address] documented as of this encounter Visit Diagnoses Not on filedocumented in this encounter Additional Health Concerns Assessment Noted Time PHQ-9 Depression Total Score: 2 01/28/20 9:02 AM EDT documented as of this encounter Care Teams Assembler For Puller Over Machine Relationship Specialty Start Date End Date Rodri Razo MD [address] [place] [address] PCP - General Internal Medicine 02/01/25 documented as of this encounter
[2025-07-18 09:07] VITALS: BMI 28.2
--- NOTE | 2025-07-18 15:06 | HO.ANESPROP2 ---
Documented by User: Samira Villeda NP 07/18/25 15:06 HPI - Anesthesia Eval Consult details Narrative: 54yo M for Left Repair Hernia Incarcerated Inguinal Reducible with mesh s/p EGD and [place] 06/2025 with TIVA PMFSH Active Problems Active Problems: All Active Problems Acid reflux (Acute) Anemia (Acute) Incarcerated left inguinal hernia (Acute) Positive colorectal cancer screening using Cologuard test (Acute) Colon cancer screening (Acute) Past Medical History Medical History (Updated 05/19/25 @ 17:30 by Mariam Calero CNP) Acid reflux Anemia Family History Family History Father Cancer of unknown origin Brother Prostate cancer Family history of problems with anesthesia: No Surgical History Surgical History (Updated 07/12/25 @ 11:38 by Charley Cintron) History of esophagogastroduodenoscopy (EGD) Hx of colonoscopy History of Problems with Anesthesia: No Social History Social History Are you a primary progressive care nurse to a significant other at home: No Do you presently have visiting nurse or other home services: No Alcohol intake: never Patient Tobacco Use Status: Former Tobacco user Second Hand Smoke Exposure: No Have you been hit, kicked, punched, or otherwise hurt by someone within the past year? If so, by whom?: No Are you DNR?: No Advance Directives: No Advance Directives Information Provided: Yes Meds Allergies Allergy/AdvReac Type Severity Reaction Status Date / Time No Known Allergies Allergy Verified 05/17/25 11:27 Home Medications ?Medication ?Instructions ?Recorded ?Confirmed ?Last Taken ?Type ascorbic acid (vitamin C) 250 mg 250 mg PO DAILY 05/19/25 07/20/25 Unknown History tablet blood pressure test kit-large #1 ea 05/19/25 07/20/25 Unknown History (Omron Blood Pressure Monitor-3 Series kit) multivitamin 1 tab PO DAILY 05/19/25 07/20/25 Unknown History hydrochlorothiazide 25 mg tablet 25 mg PO DAILY 06/28/25 07/20/25 Unknown History Exam Height,Weight and Vital Signs: Height 5 ft 7 in Weight 81.647 kg Assessment and Plan Assessment Anesthesia Assessment: Chart Reviewed Final Anesthetic Review Family History of Problems with Anesthesia: No History of Problems with Anesthesia: No Documented by User: Khurram Mora MD 07/20/25 07:20 [facility] Past Medical History Medical History (Updated 05/19/25 @ 17:30 by Mariam Calero CNP) Acid reflux Anemia Cognitive capacity: normal Expected Date of Delivery: 07/20/25 Family History Family History Father Cancer of unknown origin Brother Prostate cancer Surgical History Surgical History (Updated 07/12/25 @ 11:38 by Charley Cintron) History of esophagogastroduodenoscopy (EGD) Hx of colonoscopy Social History Social History Are you a primary progressive care nurse to a significant other at home: No Do you presently have visiting nurse or other home services: No Alcohol intake: never Patient Tobacco Use Status: Former Tobacco user Second Hand Smoke Exposure: No Have you been hit, kicked, punched, or otherwise hurt by someone within the past year? If so, by whom?: No Are you DNR?: No Advance Directives: No Advance Directives Information Provided: Yes Meds Allergies Allergy/AdvReac Type Severity Reaction Status Date / Time No Known Allergies Allergy Verified 05/17/25 11:27 Home Medications ?Medication ?Instructions ?Recorded ?Confirmed ?Last Taken ?Type ascorbic acid (vitamin C) 250 mg 250 mg PO DAILY 05/19/25 07/20/25 Unknown History tablet blood pressure test kit-large #1 ea 05/19/25 07/20/25 Unknown History (Omron Blood Pressure Monitor-3 Series kit) multivitamin 1 tab PO DAILY 05/19/25 07/20/25 Unknown History hydrochlorothiazide 25 mg tablet 25 mg PO DAILY 06/28/25 07/20/25 Unknown History Exam Exam Date and Time: 07/20/2025 Airway Mallampati Class: II TM Dist: >3cm Neck ROM: Full Heart: rrr Lungs: cta Other: normal Assessment and Plan Assessment Anesthesia Assessment: Anesthesia Plan Discussed Final Anesthetic Review NPO: Yes ASA Class: II Final Preanesthetic Review: No Changes in Pt Med Stat, Meds/Allgs Chart Reviewed, Consent Obtained/Reviewed and Anes Risks/Benef Reviewed Patient Risk: Low Procedure Risk: Low Anesthetic Plan Anesthetic Plan: GA Disposition: Standard PACU
[2025-07-20] VITALS (8 sets, daily range): BP systolic 136–151; BP diastolic 76–84; PULSE 68–77; RESP 14–18; TEMP 36.3–36.9; O2SAT 96–100; BMI 27.7
[2025-07-20] MEDS: Lactated Ringers 1,000 ML 100 ML IVCONT (06:05)
--- NOTE | 2025-07-20 07:19 | MHC.SHP ---
Pre-Procedural Eval Section A - 24 Hr Update-Section A only Date of Service: 07/20/25 The patient is an INPATIENT: No Changes since office visit: Yes Patient answered all questions; No Cold of Flu in the past 2 weeks, No New Medical Problems and No Changes in Medication The patient has been examined within 24 hours of the surgical procedure. The History & Physical has been completed within 30 days and I have reviewed it.: No Section B - Complete if H&P > 30 days Chief Complaint: Unilateral inguinal hernia, with obstruction, Details of Present Illness: No change in patient's abdominal symptoms Relevant Family History (Specify if Yes): No Relevant Social History: None Present Medications: see Short Stay Collaborative assessment Medical History: No relevant PMH History of Previous Operations: No relevant previous surgery Allergies: Allergies Allergy/AdvReac Type Severity Reaction Status Date / Time No Known Allergies Allergy Verified 05/17/25 11:27 Review of Systems Sugical H&P ROS: Negative: Constitution, Cardiovascular, Respiratory, Neurological, Psychiatric, Hem-Onc, Allergic/Immunologic, Gastrointestinal, Genitourinary, Musculoskeletal, Integumentary, Endocrine and Eyes/Ears/Nose/Throat Exam Surgical H&P Exam: Normal: HEENT, Normal: Heart, Normal: Lungs, Normal: Extremities, Normal: Abdomen, Normal: Skin and Normal: Neurological Plan Diagnosis/Plan: Unchanged I have reviewed the history and physical and performed a pertinent physical examination on my patient. No changes have occurred unless specified. Time Spent With Patient Time: Total time managing care of this patient today ____ minutes.
--- NOTE | 2025-07-20 09:27 | P.OP_ITS ---
Operative Note Operative Note Date of Service: 07/20/25 Narrative: Preoperative diagnosis: Large left inguinal hernia, incarcerated Postoperative diagnosis: Same Procedure: Repair of large left inguinal hernia with mesh Surgeon: Juan Jose Loaiza MD Collection Administrator: Jojo Travis PA-C; Jd eLi MS-3 Anesthesia: General endotracheal Indications for procedure: 54-year-old male patient presenting with an extremely large left inguinal hernia, non reducible but non strangulated Operative findings: Large left inguinal hernia containing cecum, appendix, ileum and portions of transverse colon Specimen: Hernia sac, omentum Estimated blood loss: 10 mL Complications: None Procedure details: Patient was brought to the OR and placed in a supine position. After administering general anesthesia the patient's abdomen was prepped with ChloraPrep and draped in a sterile fashion. A surgical time-out was called the consent confirmed. Patient received preoperative antibiotics and Venodyne boots were in place. Local anesthesia consisting of 0.5% Sensorcaine was then infiltrated over the left inguinal ligament. A incision was then made over the left inguinal ligament and carried out through subcutaneous tissue, past Angelo's fashion up to the external oblique aponeurosis. Additional local was infiltrated into the external oblique aponeurosis. This was then incised with a scalpel and widened with the Metzenbaum scissors. Spermatic cord was found to be markedly dilated due to the large incarcerated hernia. Fibers of the cremaster muscle were then in the hernia sac identified. This was then incised with the scissors in the hernia sac entered. Portions of the right colon cecum terminal ileum and transverse colon were noted in the hernia sac as well as a an extensive portion of omentum. These were gently removed from the hernia sac and returns to the abdominal cavity. The hernia sac was then further mobilized circumferentially. A sliding component was noted possibly containing the wall of bladder. Decision was made to use a pursestring to close the hernia sac and then fixate the sac to the internal oblique aponeurosis and muscle laterally. The distal sac was then dissected free from the testicle and sent as specimen labeled hernia sac. Hemostasis was assured using electrocautery. Wounds were then irrigated with saline solution and suctioned dry. A large extended PHS mesh was then obtained. The circular underlay was deployed within the large open internal ring. The overlay was then secured to the pubic tubercle, conjoined tendon, and shelving edge of the inguinal ligament using the 0 Polysorb suture. A slit was made in the mesh in the mesh wrapped around the spermatic cord at the internal ring. This was then secured to the shelving edge again using the 0 Polysorb suture. The wrap was loose enough to allow only the tip of the index finger to pass. Wounds were then irrigated with saline solution and suctioned dry. Wounds were again checked for hemostasis. External oblique aponeurosis was then closed using a running 2-0 Polysorb suture. Angelo's fascia and dermis were reapproximated using interrupted 3-0 Polysorb sutures. Skin was closed using a running subcuticular 4-0 Polysorb suture. Steri-Strips, 4 x 4 gauze and Tegaderm were then applied. A scrotal support was also applied. The patient tolerated the procedure well. Sponge, instrument, and needle counts reported as correct. The patient was transported to PACU in stable condition.
== END 2025-07-20 11:33 | disposition home or self-care (01) ==
PROVIDERS: PCP Internal Medicine; Visit Provider Surgery
PROC: (CPT 49507; principal; 2025-07-20 07:30)
DX: K40.30 Unilateral inguinal hernia, with obstruction, without gangrene, not specified as recurrent (principal); Z80.42 Family history of malignant neoplasm of prostate; Z80.9 Family history of malignant neoplasm, unspecified; K21.9 Gastro-esophageal reflux disease without esophagitis; D64.9 Anemia, unspecified; R19.5 Other fecal abnormalities; Z79.899 Other long term (current) drug therapy; Z87.891 Personal history of nicotine dependence
CPT/HCPCS: 49507; 88302; C1781; C9088; J0131; J0690; J1100; J1171; J2003; J2405; J2704; J3010

== ENCOUNTER → 2025-07-20 05:42 | Outpatient (BNV) | payer OTHER, SELFPAY | PROVIDERS: PCP Internal Medicine; Visit Provider Surgery | DX: K40.31 Unilateral inguinal hernia, with obstruction, without gangrene, recurrent (principal) | CPT/HCPCS: 49507 ==

== ENCOUNTER 2025-07-28 14:20 | Outpatient (AMB) | payer OTHER, SELFPAY ==
--- NOTE | 2025-07-28 14:26 | MHC.OFFVIS ---
Vital Signs 07/28/25 14:34 Height 5 ft 7 in Weight 159 lb BMI 24.9 BP 150/70 H Blood Pressure Location Lt brachial Position Sitting Pulse 104 H Intake Visit Reasons: s/p double Bo Intake Note: Patient follow up for acid reflux and Colonoscopy/EGD results and lab results. Patient deniesa any GI issues for today. [employer] Required: No Accompanied by: fami Allergies No Known Allergies Allergy (Verified 07/28/25 14:26) HPI HPI s/p double Bo: Details: Patient is a 54-year-old male. Patient is accompanied by his who is translating during this visit. Arthur presents for F/u after upper endoscopy and colonoscopy (06-28-2025): review of biopsy results and assessment of H. pylori tx. Pt states marked improvement in upper GI sx following H. pylori tx. Pt reports completion of eradication therapy 07-25-2025. Denies ongoing heartburn or reflux. Adheres closely to dietary modifications (avoiding sugar, fasting after 5:30 pm), as discussed previously. Postoperative pain/discomfort due to recent hernia [id number]). ; states this is resolving, planned f/u with surgeon on 08-02-2025. No new GI complaints. No issues with bowel function?bm daily reported. Reports recent Rx for periodontitis managed by dentist. No interim hospitalizations or urgent care visits. Pt also requests Rx for multivitamin. [facility] Medical History (Updated 07/28/25 @ 17:20 by Mariam Calero CNP) Colon polyp, hyperplastic Meyers's esophagus determined by biopsy Positive H. pylori test Acid reflux Anemia Surgical History (Updated 07/28/25 @ 14:33 by Charley Cintron) Hx of hernia repair History of esophagogastroduodenoscopy (EGD) Hx of colonoscopy Family History Father Cancer of unknown origin Brother Prostate cancer Social History Are you a primary rn patient care to a significant other at home: No Do you presently have visiting nurse or other home services: No Alcohol intake: never Patient Tobacco Use Status: Former Tobacco user Second Hand Smoke Exposure: No Review of Systems Const Reports as per HPI ENT Reports as per HPI Card Reports as per HPI Resp Reports as per HPI GI Reports as per HPI Reports as per HPI Physical Exam Vital Signs: Last Vital Signs Pulse 104 H 07/28/25 14:34 BP 150/70 H 07/28/25 14:34 BMI result Body Mass Index 24.9 Const General: healthy appearing, no acute distress and well developed Nutritional Appearance: average body habitus Orientation/consciousness: patient oriented x3 HEENT Head: Yes normal to inspection, Yes normocephalic and Yes atraumatic Face and sinus: Yes normal facial exam Eyes General: appearance normal, both eyes and all related structures Neck Neck: Yes normal visual inspection Resp Effort & Inspection: normal respiratory effort, able to speak in complete sentences, no tracheal deviation and symmetric chest movement Cardio Jugular venous distension: no JVD Neuro General: patient oriented x3 Gait exam (Neuro): Normal gait present Psych Appearance: grossly normal Mental Status: mental status grossly normal Speech and movement: Normal speech and movement present Affect: normal affect Attitude: cooperative Thought process: Normal thought process present Thought content: Normal thought content present Insight: Good insight present (Psych) Judgement: Good judgement present (Psych) Assessment & Plan Assessment & Plan (1) Meyers's esophagus determined by biopsy: Comment: 06/28/25 Upper endoscopy-Normal esophagus , stomach, duodenum; Hiatal hernia, Positive for H pylori, Meyers esophagus-low risk tissue cypher. Recommendations for repeat in five years ( 2029) Code(s): K22.70 - Meyers's esophagus without dysplasia Category: Medical Plan: Stable, no active GERD sx, adherent to lifestyle changes. Additional testing: Repeat EGD in 5 yrs for dysplasia surveillance. Medications: -Continue sucralfate as needed until H pylori eradication is confirmed -resume high-dose PPI once H pylori retesting complete Lifestyle Recommendations: Reinforce avoidance of trigger foods, late meals, alcohol, and tobacco. Referrals / Coordination of Care: None. Follow-Up Plan: Annual review; sooner if new/recurrent reflux, dysphagia, or GI bleeding. (2) Colon polyp, hyperplastic: Comment: 06/28/25 colonoscopy complete with adequate prep-Normal colon and terminal ileum mucosa, 4 mm hyperplastic polyp (sigmoid), Internal hemorrhoids. Recommendations for repeat in 10 years ( 2034) Code(s): K63.5 - Polyp of colon Category: Medical Qualifiers: Colon location: sigmoid Qualified Code(s): K63.5 - Polyp of colon Plan: Polyp benign; hemorrhoids asymptomatic; routine surveillance only. Additional testing: Routine colonoscopy in 10 yrs. Medications: None. Lifestyle Recommendations: Maintain healthy bowel habits, fiber as tolerated. Referrals / Coordination of Care: None. Follow-Up Plan: Per above. (3) Positive H. pylori test: Code(s): A04.8 - Other specified bacterial intestinal infections Category: Medical Plan: Completed abx as of 07-25-2025; sx resolved. [id number] indicated per guidelines; no further abx unless persistently positive. Additional testing: Urea breath test scheduled for week of 08-22-2025. Medications: None currently. Monitor for recurrent GI complaints. Lifestyle Recommendations: Continue dietary modifications. Referrals / Coordination of Care: None. Follow-Up Plan: Nurse/MA to perform H. pylori [id number]; f/u prn if positive. (4) Incarcerated left inguinal hernia: Code(s): K40.30 - Unilateral inguinal hernia, with obstruction, without gangrene, not specified as recurrent Category: Medical Plan: Recovering, mild post-op pain, suture in place, f/u with surgery 08-02-2025. No acute GI or wound issues reported. Additional testing: None via GI service. Medications: Usual analgesics as prescribed by surgery. Lifestyle Recommendations: Encourage wound care, activity as tolerated. Referrals / Coordination of Care: Surgery f/u next week. Follow-Up Plan: No further GI-specific f/u unless complications. Plan Follow-up one year or sooner as needed Time: I spent a total of 30 minutes on the date of encounter which includes: Preparing to see the patient (reviewed previous documentation, test results and medical history) Performing a medically appropriate exam and/or evaluation Ordering medications, tests, and procedures Documenting clinical information in the health record Orders: Orders H Pylori Breath Test 08/22/25 Medications: Changed From multivitamin 1 tab PO DAILY To multivitamin Take one tablet daily 1 tab PO DAILY 90 tabs 0RF On Hold omeprazole Hold Comment: Doctor's Order 20 mg PO BID 28 tabs 0RF Coding Level of Care Code Established Pt Est Pt Level 3 (82895) Patient Type Established Diagnoses Meyers's esophagus determined by biopsy K22.70 Hyperplastic polyp of sigmoid colon K63.5 Colon location: sigmoid Positive H. pylori test A04.8 Incarcerated left inguinal hernia K40.30
[2025-07-28 14:34] VITALS: BP 150/70; PULSE 104; BMI 24.9
--- OUTSIDE RECORDS SUMMARY | 2025-07-28 18:41 | XMS_ITS | Clinical Summary ---
Author Organization [employer] Address [address] [facility] [address] [place] [address] Care Team Providers Care Petrologist Name Role Phone Rodri Razo MD Primary Care Prov ider Allergies No known active allergies Medications Blood Pressure kit 1 kit Once per day. 1 kit 04/11/20 25 Active hydroCHLOROthi azide (HYDRODiuril) 25 MG tablet Take 1 tablet (25 mg) by mouth Once per day. 90 tablet 3 07/05/20 25 026 Active Diclofenac Sodium (Voltaren) 1 % gel Apply 1 g topically 2 times daily. 350 g 3 07/05/20 25 Active hydroCHLOROthi azide (HYDRODiuril) 25 MG tablet Take 1 tablet (25 mg) by mouth Once per day. 30 tablet 11 06/01/20 25 025 Discontinued(Re order (will not trigger notification to Pharmacy)) Diclofenac Sodium (Voltaren) 1 % gel Apply 1 g topically 2 times daily. 350 g 3 06/01/20 25 025 Discontinued(Re order (will not trigger notification to Pharmacy)) Active Problems Problem Noted Date Diagnosed Date Primary hypertension 07/05/2025 Assessment & Plan (07/06/2025 12:02 PM EDT): Not at target, will start on hydrochlorothiazide, lifestyle modifications discussed, follow up in 1 month Assessment & Plan (07/05/2025 3:03 PM EDT): Controlled, keep low sodium diet and exercise as tolerated, keep bp log, keep bp below 140/90, follow up in 3 months Prostate cancer screening 04/11/2025 Elevated blood pressure reading 04/11/2025 Assessment & Plan (04/11/2025 3:04 PM EDT): Will provide with a blood pressure monitor, encouraged to maintain a low sodium diet and exercise as tolerated, keep bp log, will follow up in 1 month Left inguinal hernia 04/11/2025 Assessment & Plan (04/11/2025 3:04 PM EDT): Will refer to surgery for evaluation Chronic pain of left knee 04/11/2025 Assessment & Plan (07/05/2025 3:04 PM EDT): Will renew voltaren gel Assessment & Plan (04/11/2025 3:05 PM EDT): Will prescribe voltaren gel, told to rest, elevate and put ice on knee, call back if not improving Encounter for medical examination to establish c are 01/27/2025 Assessment & Plan (01/27/2025 9:23 AM EDT): Last pcp visit >10yr Er visit: - Hospitalization:- Pmhx:- Pshx:- All:- Meds: tylenol PRN Screening for colon cancer 01/27/2025 Assessment & Plan (01/27/2025 9:42 AM EDT): Will send cologuard risk vs benefits discussed Encounters Date Type Department Care Team Description 07/05/2025 10:30 AM EDT Telemedicine [facility] [address] [place] [address] Rodri Razo MD Primary hypertension (Primary Dx); Chronic pain of left knee 07/05/2025 Travel 06/01/2025 3:00 PM EDT Telemedicine [facility] [address] [place] [address] Rodri Razo MD Primary hypertension (Primary Dx) 06/01/2025 Travel 05/31/2025 Telephone [facility] [address] [place] [address] Rodri Razo MD Chart Prep 05/27/2025 Orders Only [facility] External Provider, [facility] 05/13/2025 Telephone [facility] [address] [place] [address] Rodri Razo MD Referral 05/03/2025 Telephone [facility] [address] [place] [address] Rodri Razo MD Results from Last 3 Months Family History Medical History Relation Name Comments Prostate cancer Brother Cancer Father bladder Diabetes Father Diabetes Mother Hypertension Mother Parkinsonism Mother Relation Name Status Comments Brother Father Mother Social History Tobacco Use Types Packs/Day Years Used Date Smoking Tobacco: Former Cigarettes 1 10 S tarted: 2007 Smokeless Tobacco: Never Tobacco Cessation:Counseling Given: Not Answered Alcohol Use Standard Drinks/Week Comments Never 0 [...] enough money to get more: Never True Transportation Answer Date Recorded In the past [...] Orientation Straight 06/01/2025 3: 21 PM EDT Last Filed Vital Signs Vital Sign Reading Time Taken Comments Blood Pressure 137/80 07/05/2025 10:12 AM EDT Pulse 90 04/11/2025 2:28 PM EDT Temperature 36.7 C (98.1 F) 04/11/2025 2:28 PM EDT Respiratory Rate 16 04/11/2025 2:28 PM EDT Oxygen Saturation 98% 04/11/2025 2:28 PM EDT Inhaled Oxygen Concentration - - Weight 81.6 kg (180 lb) 04/11/2025 2:28 PM EDT Height 170.2 cm (5' 7 ) 04/11/2025 2:28 PM EDT Body Mass Index 28.19 04/11/2025 2:28 PM EDT Plan of Treatment Health Maintenance Due Date Last Done Comments CT Colonography 1970 Colonoscopy 1970 FIT 1970 Sigmoidoscopy 1971 DTaP/Tdap/Td Vaccines (1 - Tdap) 1990 Hepatitis B Vaccines (1 of 3 - 19+ 3-dose series) 1990 Pneumococcal Vaccine: 50+ Years (1 of 1 - PCV) 2021 Zoster Vaccines (1 of 2) 2021 COVID-19 Vaccine (2 - 2024-2 6 season) 2025 02/07/2021 Influenza Vaccine (#1) 2025 Depression Screening 01/27/2026 01/27/2025, 01/27/2025 SDOH Screening 01/27/2026 01/27/2025 Diabetes: Hemoglobin A1C 04/15/2026 04/15/2025 FOBT 04/21/2026 04/21/2025 Tobacco Screening 05/03/2026 05/03/2025 Alcohol/Substance Use Screening 07/05/2026 07/05/2025 Disability Screening 07/05/2026 07/05/2025 Colorectal Cancer Screening 04/21/2028 FIT DNA/Cologuard 04/21/2028 04/21/2025 Lipid Panel 04/15/2030 04/15/2025 RSV Patients and Patients Aged 60 years or older (1 - 1-dose 75+ series) 2046 HIV Screening Completed 04/15/2025 Hepatitis C Screening Completed 04/15/2025 HIB Vaccines Aged Out No longer eligi ble based on patient's age to complete this topic HPV Vaccines Aged Out No longer eligi ble based on patient's age to complete this topic Hepatitis A Vaccines Aged Out No long er eligible based on patient's age to complete this topic IPV Vaccines Aged Out No longer eligi ble based on patient's age to complete this topic Meningococcal B Vaccine Aged Out No l onger eligible based on patient's age to complete this topic Meningococcal Vaccine Aged Out No maria del carmen marce eligible based on patient's age to complete this topic RSV under 20 months Aged Out No longe r eligible based on patient's age to complete this topic Rotavirus Vaccines Aged Out No longer eligible based on patient's age to complete this topic Procedures Procedure Name Priority Date/Time Associated Diagnosis Comments GROSS AND MICROSCOPIC LEVEL 2 Routine 07/20/2025 9:01 AM EDT HEMATOXYLIN AND EOSIN STAIN Routine 06/28/2025 9:[address] PELVIS WO CONTRAST Routine 05/27/2025 11:08 AM EDT LAB COLOGUARD COLON CANCER SCREEN Routine 04/21/2025 10:40 AM EDT Screening for colon cancer HEPATITIS C AB W/REFL TO HCV RNA, QN, PCR Routine 04/15/2025 9:40 AM EDT Encounter for medical examination to establish care HIV 1/2 ANTIGEN/ANTIBODY, FOURTH GENERATION W/RFL Routine 04/15/2025 9:40 AM EDT Encounter for medical examination to establish care HEMOGLOBIN A1C Routine 04/15/2025 9:00 AM EDT Encounter for medical examination to establish care LIPID PANEL, STANDARD Routine 04/15/2025 9:00 AM EDT Encounter for medical examination to establish care from Last 3 Months or Most Recently Relevant to Health Maintenance Results * Gross and Microscopic Level 2 (07/20/2025 9:01 AM EDT) 07/20/2025 9:01 AM EDT 07/20/2025 10:18 AM EDT [facility] - 07/21/2025 2:24 PM EDT ----- ------- Name: Arthur Dacosta Age/Sex: 54/M : 1970 Unit#: [id number] Attend Dr: Juan Jose Loaiza MD Re07/20/25 Status: [facility] Location: [facility] Disch: ----- ------- SPEC : [id number] RECD: 07/20/25-1018 STATUS: IDANIA GARCIA NUM: [id number] REI: 07/20/[address] [facility] [address]: Juan Jose Loaiza MD ENTERED: 07/20/25-1037 SP TYPE: Surgical OTHR DR: Rodri Razo MD ORDERED: Gross Micro L2 Diagnosis Hernia sac, excision: Fibromembranous tissue with focal mesothelial lining and unremarkable adipose tissue consistent with hernia sac and contents. Clinical History Unilateral inguinal hernia, with obstruction Microscopic Description Microscopic sections reviewed. Material Received Hernia sac Gross Description Received in formalin labeled hernia sac are two sheets of edematous, congested and hemorrhagic, malone, pink-maroon and pink-purple fibromembranous tissue with attached fibroadipose tissue measuring 6.0 and 11.0 cm in greatest dimension and aggregating 11.0 x 5.0 x 0.1-0.3 cm. Sectioning reveals edematous, malone-pink and pink-maroon cut surfaces with the fibromembranous tissue measuring up to 0.1 cm in thickness. Also received is a 10.0 x 7.0 x 0.5-2.0 cm portion of reyes-yellow lobular adipose tissue, consistent with omentum with scant attached thin and delicate fibromembranous tissue. Sectioning reveals homogeneous reyes-yellow lobular adipose tissue. No fleshy, hemorrhagic or necrotic foci are identified. No lymph nodes are identified. Aerial Sprayer sections are submitted in cassettes A1 and A2. [facility] IHC S/NG Disclaimer NOTE: Unless otherwise stated, all tissue is formalin-fixed and paraffin-embedded. Some or all of the immunohistochemical tests reported herein may have been developed and their performance characteristics determined by [facility]. They have not been cleared or approved by the U.S. Food and Drug Administration (FDA). However, the FDA has determined that such clearance or approval is not necessary. This laboratory is certified under the Clinical Laboratory Improvement Amendments of 1988 (CLIA) as qualified to perform high complexity clinical laboratory testing. CONTINUED ON NEXT PAGE ----- ------- Name: Arthur Dacosta Age/Sex: 54/M : 1970 [id number]#: [id number] Attend Dr: Juan Jose Loaiza MD Re07/20/25 Status: [facility] Location: [facility] Disch: ----- ------- SPEC : [id number] RECD: 07/20/25 STATUS: IDANIA GARCIA NUM: [id number] REI: 07/20/[address]: Juan Jose Loaiza MD ENTERED: 07/20/25-1036 SP TYPE: Surgical OTHR DR: Rodri Razo MD ORDERED: Gross Micro L2 Copies To: Rodri Razo MD [address] [address] Juan Jose Loaiza MD [facility] [address] [place] [address] [phone] ----- ------- Signed (signature on file) Ursula Stephens MD 07/21/25 1424 ----- ------- END OF REPORT Generic External Data Provider LAB PADMA MARVIN Final Result [facility] [address] [place] [phone] * Hematoxylin and Eosin Stain (06/28/2025 9:15 AM EDT) 06/28/2025 9:15 AM EDT 06/28/2025 9:45 AM EDT [facility] - 07/15/2025 8:37 AM EDT ----- ------- Name: Arthur Dacosta Age/Sex: 54/M : 1970 Unit#: [id number] Attend Dr: Hannah Soriano MD Re06/28/25 Status: [facility] Location: [facility] Disch: ----- ------- SPEC : [id number] RECD: 06/28/25 STATUS: IDANIA GARCIA NUM: [id number] REI: 06/28/[address] [facility] [address]: Hannah Soriano MD ENTERED: 06/28/25 SP TYPE: Surgical OTHR DR: Rodri Razo MD ORDERED: HE Stain/18, Gross Micro L4/6, IHC, Special st. 2/3, H. pylori, Eso bx BA w/exc, AB/PAS/3 COMMENTS: 7 unstained slides (C) sent to [facility] for [facility] on 06/30/25. Addendum Addendum 2 Entered: 07/15/25 [facility] (C): Risk class Low; risk score 1.3 See report in its entirety in the EMR - Reports/Pathology section as a scanned report (camera icon). If appropriate, a copy has also been sent to the ordering provider's office. Addendum Signed (signature on file) Benjamin Valenzuela MD 07/15/25836 ----- ------- Addendum 1 Entered: 06/30/25 [facility]. Addendum Signed (signature on file) Benjamin Valenzuela MD 06/30/2549 ----- ------- Diagnosis A. Duodenum, biopsy: Duodenal mucosa within normal limits. B. Stomach, random, biopsy: - Antral-type and oxyntic mucosa with moderate chronic active inflammation. - Positive for H pylori. C. 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 - No dysplasia seen. - Squamous epithelium within normal limits. D. Colon, right, biopsy: Colonic mucosa within normal limits. E. Colon, left, biopsy: Colonic mucosa within normal limits. CONTINUED ON NEXT PAGE ----- ------- Name: Arthur Dacosta Age/Sex: 54/M : 1970 [id number] Unit#: [id number] Attend Dr: Hannah Soriano MD Re06/28/25 Status: [facility] Location: [facility] Disch: ----- ------- SPEC : [id number] RECD: 06/28/25 STATUS: [facility] NUM: [id number] REI: 06/28/[address] [facility] [address]: Hannah Soriano MD ENTERED: 06/28/25 SP TYPE: Surgical OTHR DR: Rodri Razo MD ORDERED: HE Stain/18, Gross Micro L4/6, IHC, Special st. 2/3, H. pylori, Eso bx BA w/exc, AB/PAS/3 COMMENTS: 7 unstained slides (C) sent to [facility] for [facility] on 06/30/25. Diagnosis (Continued) F. Colon, sigmoid, polypectomy: Hyperplastic mucosal polyp; multiple additional levels examined. Clinical History Pre-Op Dx: GERD, screening Post-Op Dx: Hiatal hernia, diverticulosis, colon polyp Microscopic Description A-F. Microscopic sections examined. Focal intestinal metaplasia is present in part C and no metaplastic changes are seen A and B, supported by AB/PAS stains; Helicobacter organisms are seen, supported by H. pylori immunostain (B). Material Received A. Duodenum bx B. Random gastric bx C. EG junction bx - r/o Meyers's D. Right colon bx's E. Left colon bx's F. Sigmoid colon polyp Gross Description Received in 6 parts. A. Received in formalin labeled duodenum biopsy are 4 fragments of pink white soft tissue measuring 0.2-0.3 cm in greatest dimension which are wrapped in lens paper and entirely submitted for microscopic examination, 4 pieces in cassette A. B. Received in formalin labeled random gastric biopsy are 3 fragments of pink white soft tissue, each measuring 0.3 cm in greatest dimension, which are wrapped in lens paper and entirely submitted for microscopic examination, 3 pieces in cassette B. C. Received in formalin labeled GE junction biopsy R/0 Meyers's are 2 fragments of pink white soft tissue measuring 0.3 and 0.3 cm in greatest dimension which are wrapped in lens paper and entirely submitted for microscopic examination, 2 pieces in cassette C. D. Received in formalin labeled right colon biopsies are 4 fragments of pink white soft CONTINUED ON NEXT PAGE ----- ------- Name: Logan BallardArthur mcrae Age/Sex: 54/M : 1970 Unit#: [id number] Attend Dr: Hannah Soriano MD Re06/28/25 Status: [facility] Location: [facility] Disch: ----- ------- SPEC : [id number] RECD: 06/28/25 STATUS: IDANIA GARCIA NUM: [id number] REI: 06/28/[address] [facility] [address]: Hannah Soriano MD ENTERED: 06/28/25 SP TYPE: Surgical OTHR DR: Rodri Razo MD ORDERED: HE Stain/18, Gross Micro L4/6, IHC, Special st. 2/3, H. pylori, Eso bx BA w/exc, AB/PAS/3 COMMENTS: 7 unstained slides (C) sent to [facility] for [facility] on 06/30/25. Gross Description (Continued) tissue measuring 0.2-0.3 cm in greatest dimension which are wrapped in lens paper and entirely submitted for microscopic examination, 4 pieces in cassette D. E. Received in formalin labeled left colon biopsies are 3 fragments of malone-white soft tissue measuring 0.3-0.4 cm in greatest dimension which are wrapped in lens paper and entirely submitted for microscopic examination, 3 pieces in cassette E. F. Received in formalin labeled sigmoid colon polyp are 2 fragments of pink white soft tissue measuring 0.3 and 0.4 cm in greatest dimension which are wrapped in lens paper and entirely submitted for microscopic examination, 2 pieces in cassette F. ([facility]) Special studies ordered and performed: Immunostain for H. pylori on B; AB/PAS stains on A, B and C IHC S/NG Disclaimer NOTE: Unless otherwise stated, all tissue is formalin-fixed and paraffin-embedded. Some or all of the immunohistochemical tests reported herein may have been developed and their performance characteristics determined by [facility]. They have not been cleared or approved by the U.S. Food and Drug Administration (FDA). However, the FDA has determined that such clearance or approval is not necessary. This laboratory is certified under the Clinical Laboratory Improvement Amendments of 1988 (CLIA) as qualified to perform high complexity clinical laboratory testing. Copies To: Rodri Razo MD [address] [address] Hannah Soriano MD [facility] [address] [place] [phone] [email or web address] CONTINUED ON NEXT PAGE ----- ------- Name: Arthur Dacosta Age/Sex: 54/M : 1970 Unit#: [id number] Attend Dr: Hannah Soriano MD Re06/28/25 Status: [facility] Location: [facility] Disch: ----- ------- SPEC : [id number] RECD: 06/28/25 STATUS: IDANIA GARCIA NUM: [id number] REI: 06/28/[address] [facility] [address]: Hannah Soriano MD ENTERED: 06/28/25 SP TYPE: Surgical OTHR DR: Rodri Razo MD ORDERED: HE Stain/18, Gross Micro L4/6, IHC, Special st. 2/3, H. pylori, Eso bx BA w/exc, AB/PAS/3 COMMENTS: 7 unstained slides (C) sent to [facility] for [facility] on 06/30/25. ----- ------- Signed (signature on file) Benjamin Valenzuela MD 06/30/25 0938 ----- ------- END OF REPORT us Generic External Data Provider LAB BLOOD ORDERAB LES Final Result [facility] [address] [place] [phone] * CT Pelvis w/o Contrast (05/27/2025 11:08 AM EDT) Anatomical Region Laterality Modality Body, Pelvis Computed Tomogra phy 05/27/2025 11:0 8 AM EDT Narrative 05/27/2025 12:13 PM EDT [address] [address] [address] Scan Report Signed Patient: Arthur Dacosta MR#: [id number] : 1970 Acct:[id number] Age/Sex: 54 / M ADM Date: 05/27/25 Loc: HO.CT Attending Dr: Juan Jose Loaiza MD Ordering Physician: Juan Jose Loaiza MD Date of Service: 05/27/25 Procedure(s): CT pelvis wo IV con Accession Number(s): [id number] cc: Rodri Razo MD; Juan Jose Loaiza MD Report Number: [id number]: Total DLP = 622.00 mGy-cm EXAMINATION: CT PELVIS WITHOUT IV CONTRAST HISTORY: K40.30 - Unilateral inguinal hernia, with obstruction, without gangrene,... COMPARISON: There are no prior studies available for comparison. TECHNIQUE: CT scan of the pelvis was performed without contrast using standard departmental protocol. Coronal and sagittal reformatted images were generated and reviewed. The patient received oral contrast material. This CT exam was performed with one or more of the following dose reduction techniques: automated exposure control, adjustment of the mA and/or kV according to patient size, use of iterative reconstruction technique. DLP: 622 mGy-cm FINDINGS: There is a large left-sided inguinal hernia. Evaluation is somewhat limited due to the large size of the hernia. The hernia sac appears to course medial to the inferior epigastric vessels, consistent with a direct hernia. The hernia contains nearly the entire colon (except for the rectosigmoid colon) as well as the appendix, and a large portion of the small bowel. There is no evidence of bowel obstruction. There is no infiltration of the fat within the hernia. The opening of the hernia sac measures approximately 4.5 cm in diameter. The urinary bladder is unremarkable. The prostate is normal in size. There is no ascites in the pelvis. There are enlarged left obturator lymph nodes measuring up to 2.[address]/CT pelvis wo IV con IMPRESSION: Findings consistent with a left-sided direct inguinal hernia as described. Electronically signed by: Karthikeyan Lauren MD 05/27/2025 12:10 PM EDT RP Dictated By: Karthikeyan Lauren MD Signed By: <Electronically signed by Karthikeyan Lauren MD in OV> 05/27/25 1210 DD/ 1108 TD/TT: 05/27/25 1145 Associate Drafter: Procedure Note Donotuseinterpreter, Image - 05/27/[address] [place] [address] [address] Scan Report Signed Patient: Isatu Dacosta#: [id number] : 1970Acct:[id number] Age/Sex: 54 / MADM Date: 05/27/25 Loc: .CT Attending Dr: Juan Jose Loaiza MD Ordering Physician: Juan Jose Loaiza MD Date of Service: 05/27/25 Procedure(s): CT pelvis wo IV con Accession Number(s): [id number] cc: Rodri Razo MD; Juan Jose Loaiza MD Report Number: [id number]: Total DLP = 622.00 mGy-cm EXAMINATION: CT PELVIS WITHOUT IV CONTRAST HISTORY: K40.30 - Unilateral inguinal hernia, with obstruction, without gangrene,... COMPARISON: There are no prior studies available for comparison. TECHNIQUE: CT scan of the pelvis was performed without contrast using standard departmental protocol. Coronal and sagittal reformatted images were generated and reviewed. The patient received oral contrast material. This CT exam was performed with one or more of the following dose reduction techniques: automated exposure control, adjustment of the mA and/or kV according to patient size, use of iterative reconstruction technique. DLP: 622 mGy-cm FINDINGS: There is a large left-sided inguinal hernia. Evaluation is somewhat limited due to the large size of the hernia. The hernia sac appears to course medial to the inferior epigastric vessels, consistent with a direct hernia. The hernia contains nearly the entire colon (except for the rectosigmoid colon) as well as the appendix, and a large portion of the small bowel. There is no evidence of bowel obstruction. There is no infiltration of the fat within the hernia. The opening of the hernia sac measures approximately 4.5 cm in diameter. The urinary bladder is unremarkable. The prostate is normal in size. There is no ascites in the pelvis. There are enlarged left obturator lymph nodes measuring up to 2.[address]/CT pelvis wo IV con IMPRESSION: Findings consistent with a left-sided direct inguinal hernia as described. Electronically signed by: Karthikeyan Lauren MD 05/27/2025 12:10 PM EDT Dictated By: Karthikeyan Lauren MD Signed By: <Electronically signed by Karthikeyan Lauren MD in OV> 05/27/25 1210 DD/ 1108 TD/TT: 05/27/25 1145 Associate Drafter: [facility] External Provider IMG CT PROCEDURES Edited Result - Final * (ABNORMAL) Cologuard?? colon cancer screening (04/21/2025 10:40 AM EDT) Cologuard Result Positive( A) Negative 04/25/2025 8:46 PM EDT [employer] (CLIA #:[id number]) Comment: The Cologuard (TM) test was performed on this specimen. POSITIVE TEST RESULT. A positive Cologuard result should be followed with a colonoscopy or visual examination of the colon. The normal value (reference range) for this assay is negative. TEST DESCRIPTION: Composite algorithmic analysis of stool DNA-biomarkers with hemoglobin immunoassay. Quantitative values of individual biomarkers are not reportable and are not associated with individual biomarker result reference ranges. Cologuard is intended for colorectal cancer screening of adults of either sex, 45 years or older, who are at average-risk for colorectal cancer (CRC). Cologuard has been approved for use by the U.S. FDA. The performance of Cologuard was established in a cross sectional study of average-risk adults aged 50-84. Cologuard performance in patients ages 45 to 49 years was estimated by sub-group analysis of near-age groups. Colonoscopies performed for a positive result may find as the most clinically significant lesion: colorectal cancer [4.0%], advanced adenoma (including sessile serrated polyps greater than or equal to 1cm diameter) [20%] or non- advanced adenoma [31%]; or no colorectal neoplasia [45%]. These estimates are derived from a prospective cross-sectional screening study of 10,000 individuals at average risk for colorectal cancer who were screened with both Cologuard and colonoscopy. (Dick Robertson. et al, N Engl J Med 2014;370(14):6844-4975.) Cologuard may produce a false negative or false positive result (no colorectal cancer or precancerous polyp present at colonoscopy follow up). A negative Cologuard test result does not guarantee the absence of CRC or advanced adenoma (pre-cancer). The current Cologuard screening interval is every 3 years. ([place] Cancer Society and U.S. Multi-Society Task Force). Cologuard performance data in a 10,000 patient pivotal study using colonoscopy as the reference method can be accessed at the following location: [email or web address]. Additional description of the Cologuard test process, warnings and precautions can be found at [email or web address]. Stool specimen (specimen) 04/21/2025 10:40 AM EDT 04/22/2025 12:50 PM EDT Rodri Douglass MD LAB MOLECULAR DIAG NOSTICS ORDERABLES Final Result Performing Organization Address City/[facility]/ZIP Co de Phone Number [employer] (CLIA #:[id number]) [address] [place] [address], * Hepatitis C Antibody with Reflex to HCV, RNA, Quantitative, Real-Time PCR (04/15/2025 9:40 AM EDT) Hepatitis C Antibody Nonreactive Nonreactive [facility] Comment:Antibodies to HCV no t detected; does not exclude early acuteHCV infection. Blood Venous blood specimen / Unknown 04/15/2025 9:40 AM EDT 04/15/2025 2:02 PM EDT Rodri Douglass MD LAB BLOOD ORDERABL ES Final Result Performing Organization Address [facility] Co de Phone Number [facility] [address] [place] [phone] * HIV-1/2 Antigen and Antibodies, Fourth Generation, with Reflexes (04/15/2025 9:40 AM EDT) HIV AB/AG Nonreactive Nonreactive [facility] Comment:HIV-1 p24 Ag and/or HIV-1/HIV-2 Ab not detected.A test result that is nonreactive does not exclude thepossibility of exposure to or infection with HIV-1 and/orHIV-2. Nonreactive results in this assay for individualswith prior exposure to HIV-1 and/or HIV-2 may be due toantigen and antibody levels that are below the limit ofdetection of this assay.The [employer] HIV Ag/Ab Combo assay result andsupplemental assay results should be interpreted inconjunction with the patient's clinical presentation,history and other laboratory results. If the results areinconsistent with clinical evidence, additional testing issuggested to confirm the result. Blood Venous blood specimen / Unknown 04/15/2025 9:40 AM EDT 04/15/2025 2:02 PM EDT Rodri Douglass MD LAB BLOOD ORDERABL ES Final Result Performing Organization Address [facility] Co de Phone Number [facility] [address] [place] [phone] * (ABNORMAL) Hemoglobin A1c (04/15/2025 9:00 AM EDT) Hemoglobin A1c 6.1(H) <6.0 % [facility] Comment:Hemoglobin A1C Refer ence Range Adults: 4.8 - 6.0 % Non diabetic: < 6.0 % Goal: < 7.0 %Additional Action Suggested: > 8.0 %Note: Hemoglobin A1c results are invalid for patients with abnormal amounts of HbF. Blood transfusions may impact the HbA1c concentration in the patient sample. Estimated Average Glucose 128 mg/dL [facility] Comment:eAG = Estimated ave rage glucose which is %A1C expressed asaverage glucose, using the formula of the Q1K-WrhqcdfFxwylad Glucose study (ADAG), Diabetes Care, Vol.31,#8,Jun. 2007 Blood Venous blood specimen / Unknown 04/15/2025 9:00 AM EDT 04/15/2025 2:02 PM EDT us Rodri Douglass MD LAB BLOOD ORDERABL ES Final Result Performing Organization Address [facility] Co de Phone Number [facility] [address] [place] [phone] * Lipid Panel, Standard (04/15/2025 9:00 AM EDT) Triglycerides 108 <150 mg/dL [facility] Comment:Desirable Triglyceri de: less than 150 mg/dLBorderline High Triglyceride 150-199 mg/dLHigh Triglyceride: 200-499 mg/dLVery High Triglyceride: greater than or equal to 5OO mg/dL Cholesterol 166 <200 mg/dL [facility] Comment:Desirable Cholestero l: less than 200 mg/dLBorderline High Cholesterol: 200-239 mg/dLHigh Cholesterol: greater than 239 mg/dL LDL Cholesterol Calculated 92 <100 mg/dL [facility] Comment:Desirable LDL: less than 100 mg/dLNear Optimal/Above Optimal LDL: 110- 129 mg/dLBorderline High LDL: 130-159 mg/dLHigh LDL: 160-189 mg/dLVery High LDL: greater than or equal to 190 mg/dL HDL Cholesterol 53 >40 mg/dL [facility] Comment:Desirable HDL: great er than 40 mg/dL Note: This HDL assay may give artificially low results in patients with liver disease. Blood Venous blood specimen / Unknown 04/15/2025 9:00 AM EDT 04/15/2025 2:05 PM EDT Rodri Douglass MD LAB BLOOD ORDERABL ES Final Result [facility] [address] [place] [phone] from Last 3 Months or Most Recently Relevant to Health Maintenance Insurance Care Teams Petrologist Relationship Specialty Start Date End Date Rodri Razo MD [address] [place] [address] PETRA Crow [address] PCP - General Internal Medicine 02/01/25
--- OUTSIDE RECORDS SUMMARY | 2025-07-28 18:41 | XMS_ITS | Encounter Summary ---
Author Organization [employer] Address [address] [facility] 7 [place] [address] Care Team Providers Care Straddle Bug Name Role Phone Rodri Razo MD Primary Care Prov ider Reason for Visit * Reason Onset Date Comments Referral 05/13/2025 Encounter Details Date Type Department Care Team ([facility] st Contact Info) Description 05/13/2025 Telephone [facility] MED & PEDS [address] [place] [address] Rodri Razo MD [address] [place] [address] Referral Social History Tobacco Use Types Packs/Day [...] PM EDT Tc from spouse reporting that [facility] has not received the referral for the Gastro. Please fax over the referral again. documented in this encounter Plan of Treatment Not on file documented as of this encounter Visit Diagnoses Not on filedocumented in this encounter Additional Health Concerns Assessment Noted Time PHQ-9 Depression Total Score: 2 01/28/20 9:02 AM EDT documented as of this encounter Care Teams Straddle Bug Relationship Specialty Start Date End Date Rodri Razo MD [address] [place] [phone] PCP - General Internal Medicine 02/01/25 documented as of this encounter
== END 2025-07-28 15:26 | disposition home or self-care (01) ==
LOC: HO.HGI 14:20
PROVIDERS: PCP Internal Medicine; Visit Provider Nurse Practitioner Family
DX: K22.70 Barrett's esophagus without dysplasia (principal); K63.5 Polyp of colon; A04.8 Other specified bacterial intestinal infections; K40.30 Unilateral inguinal hernia, with obstruction, without gangrene, not specified as recurrent
CPT/HCPCS: 99213

== ENCOUNTER → 2025-07-28 14:20 | Outpatient (BNVA) | payer OTHER, SELFPAY | PROVIDERS: PCP Internal Medicine; Visit Provider Nurse Practitioner Family | DX: K22.70 Barrett's esophagus without dysplasia (principal); K63.5 Polyp of colon; A04.8 Other specified bacterial intestinal infections; K40.30 Unilateral inguinal hernia, with obstruction, without gangrene, not specified as recurrent | CPT/HCPCS: 99212 ==

== ENCOUNTER 2025-08-02 13:16 | Outpatient (AMB) | payer OTHER, SELFPAY ==
[2025-08-02 13:18] VITALS: BMI 24.9
--- NOTE | 2025-08-02 13:18 | MHC.OFFVIS ---
Vital Signs 08/02/25 13:18 Height 5 ft 7 in Weight 158 lb 15.993 oz BMI 24.9 Intake Visit Reasons: s/p LIH w/mesh Intake Note: Patient here s/p repair of large left inguinal hernia with mesh. Patient c/o: reports no complaints pertaining to surgery. Surgery: () 07-20-2025 Drying Machine Operator Package Yarns Required: Yes Drying Machine Operator Package Yarns Language: Mineral Mixer Services: Drying Machine Operator Package Yarns Offered & Declined Accompanied by: Family/Other Allergies No Known Allergies Allergy (Verified 08/02/25 13:22) HPI HPI s/p LIH w/mesh: Details: Patient presents with partner who is acting as the public health epidemiologist for this evaluation. Patient states he is doing well has no concerns at this time. Reports minimal pain. Although he did not state this I can tell that he has some pain with moving around. He reports his diet is at baseline. He is urinating and passing bowel movements at baseline without any issues. He denies fevers or chills, nausea or vomiting. Denies drainage from incision site PFSH Medical History Left inguinal hernia (07/20/25) Colon polyp, hyperplastic Meyers's esophagus determined by biopsy Positive H. pylori test Acid reflux Anemia Surgical History Hx of hernia repair History of esophagogastroduodenoscopy (EGD) Hx of colonoscopy Family History Father Cancer of unknown origin Brother Prostate cancer Social History Are you a primary hearing healthcare practitioner to a significant other at home: No Do you presently have visiting nurse or other home services: No Alcohol intake: never Patient Tobacco Use Status: Former Tobacco user Second Hand Smoke Exposure: No Physical Exam Vital Signs: BMI result Body Mass Index 24.9 Const General: comfortable and no acute distress Orientation/consciousness: patient oriented x3 GI Other: Incision site: Steri-Strips in place, incision site clean dry intact, no surrounding erythema some mild to moderate induration deep to the incision site (likely scarring) no fluid collection mildly tender Inspection: No distended Palpation (GI): Soft to palpation, Tenderness to palpation present (GI) (Incision site) and no guarding Neuro General: patient oriented x3 Assessment & Plan Assessment & Plan (1) S/P inguinal hernia repair: Comment: Left, July 2025 Dr. Loaiza Code(s): Z98.890 - Other specified postprocedural states; Z87.19 - Personal history of other diseases of the digestive system Category: Medical Plan 54-year-old male s/p left inguinal hernia repair on 07/20/[address] Loaiza returning to the office for routine follow up. Overall he reports he is doing very well, not complaining of pain however I can see that he is walking fairly gingerly in his likely dealing with some pain. I reassured him that it is normal to have some pain postoperatively but that this should improve over the next few weeks. Otherwise his appetite and bowel function are at baseline he is not having nausea or vomiting with diet. he denies fevers or chills. He reports no concerns with the incision site, denies drainage or bleeding. On exam the abdomen is soft and benign the incision site appears to be healing well, I removed the Steri-Strips in office in the incision site is clean dry and intact no concern for infection at this time. He has not been doing heavy lifting, we will continue with activity restrictions no heavy lifting greater than 15-20 lb for the next 4 weeks. He will return in 4 weeks for routine follow up. He is to call with any concerns or questions prior to that appointment. Coding Level of Care Code Global (28789) Diagnoses S/P inguinal hernia repair Z98.890; Z87.19
--- OUTSIDE RECORDS SUMMARY | 2025-08-02 14:34 | XMS_ITS | Encounter Summary ---
Author Organization [employer] Address [address] [facility] [address] [place] [address] Care Team Providers Care Art Model Name Role Phone Rodri Razo MD Primary Care Prov ider Reason for Visit * Reason Onset Date Comments Referral 05/13/2025 Encounter Details Date Type Department Care Team ([facility] st Contact Info) Description 05/13/2025 Telephone [facility] CHC MED & PEDS [address] [place], [place] [phone] Rodri Razo MD [address] [place] [address] Referral Social History Tobacco Use Types Packs/Day [...] PM EDT Tc from spouse reporting that [facility] has not received the referral for the Gastro. Please fax over the referral again. documented in this encounter Plan of Treatment Not on file documented as of this encounter Visit Diagnoses Not on filedocumented in this encounter Additional Health Concerns Assessment Noted Time PHQ-9 Depression Total Score: 2 01/28/20 9:02 AM EDT documented as of this encounter Care Teams Art Model Relationship Specialty Start Date End Date Rodri Razo MD [address] [place] [phone] PCP - General Internal Medicine 02/01/25 documented as of this encounter
--- OUTSIDE RECORDS SUMMARY | 2025-08-02 14:34 | XMS_ITS | Clinical Summary ---
Author Organization [employer] Address [address] [facility] [address] [place] [address] Care Team Providers Care Digital Director Name Role Phone Rodri Razo MD Primary [...] Description 07/05/2025 10:30 AM EDT Telemedicine [facility] [address] [place] [address] Rodri Razo MD Primary hypertension (Primary Dx); Chronic pain of left knee 07/05/2025 Travel 06/01/2025 3:00 PM EDT Telemedicine [facility] [address] [place] [address] Rodri Razo MD Primary hypertension (Primary Dx) 06/01/2025 Travel 05/31/2025 Telephone [facility] [address] [place] [address] Rodri Razo MD Chart Prep 05/27/2025 Orders Only [facility] External Provider, [facility] 05/13/2025 Telephone [facility] [address] [place] [address] Rodri Razo MD Referral 05/03/2025 Telephone [facility] [address] [place] [address] Rodri Razo MD Results from Last 3 [...] 9:01 AM EDT 07/20/2025 10:18 AM EDT [facility] - 07/21/2025 2:24 PM EDT ----- ------- Name: Arthur Dacosta Age/Sex: 54/M : 1970 Unit#: [id number] Attend Dr: Juan Jose Loaiza MD Re07/20/25 Status: [facility] Location: [facility] Disch: ----- ------- SPEC : [id number] RECD: 07/20/25-1018 STATUS: IDANIA GARCIA NUM: [id number] REI: 07/20/25 [facility] DR: Juan Jose Loaiza MD ENTERED: [...] are identified. No lymph nodes are identified. [employer] sections are submitted in cassettes A1 and A2. [facility] IHC S/NG Disclaimer NOTE: Unless otherwise stated, all tissue is formalin-fixed and paraffin-embedded. Some or all of the immunohistochemical tests reported herein may have been developed and their performance characteristics determined by [facility]. They have not been cleared [...] Name: Arthur Dacosta Age/Sex: 54/M : 1970 [id number]#: [id number] Attend Dr: Juan Jose Loaiza MD Re07/20/25 Status: [facility] Location: [facility] Disch: ----- ------- SPEC : [id number] RECD: 07/20/25 STATUS: IDANIA GARCIA NUM: [id number] REI: 07/20/[address]: Juan Jose Loaiza MD ENTERED: 07/20/25-1036 SP TYPE: Surgical OTHR DR: Rodri Razo MD ORDERED: Gross Micro L2 Copies To: Rodri Razo MD [address] [address] Juan Jose Loaiza MD [facility] [address] [place] [address] [phone] ----- ------- Signed (signature on file) Ursula Stephens MD 07/21/25 1424 ----- ------- END OF REPORT Generic External Data Provider LAB PADMA MARVIN Final Result [facility] [address] [place] [phone] * Hematoxylin and Eosin Stain (06/28/2025 9:15 AM EDT) 06/28/2025 9:15 AM EDT 06/28/2025 9:45 AM EDT [facility] - 07/15/2025 8:37 AM EDT ----- ------- Name: Arthur Dacosta Age/Sex: 54/M : 1970 Unit#: [id number] Attend Dr: Hannah Soriano MD Re06/28/25 Status: [facility] Location: [facility] Disch: ----- ------- SPEC : [id number] RECD: 06/28/25 STATUS: IDANIA GARCIA NUM: [id number] REI: 06/28/25 [facility] DR: Hannah Soriano MD ENTERED: 06/28/25 SP TYPE: Surgical OTHR DR: Rodri Razo MD ORDERED: HE Stain/18, Gross Micro L4/6, IHC, Special st. 2/3, H. pylori, Eso bx BA w/exc, AB/PAS/3 COMMENTS: 7 unstained slides (C) sent to [facility] for [facility] on 06/30/25. Addendum Addendum 2 Entered: 07/15/25 [facility] (C): Risk class Low; risk score 1.3 See report in its entirety in the EMR - Reports/Pathology section as a scanned report (camera icon). If appropriate, a copy has also been sent to the ordering provider's office. Addendum Signed (signature on file) Benjamin Valenzuela MD 07/15/25836 ----- ------- Addendum 1 Entered: 06/30/25 [facility]. Addendum Signed (signature [...] Name: Arthur Dacosta Age/Sex: 54/M : 1970 [id number] Unit#: [id number] Attend Dr: Hannah Soriano MD Re06/28/25 Status: [facility] Location: [facility] Disch: ----- ------- SPEC : [id number] RECD: 06/28/25 STATUS: [facility] NUM: [id number] RIE: 06/28/25 [facility] DR: Hannah Soirano MD ENTERED: 06/28/25 SP TYPE: Surgical OTHR DR: Rodri Razo MD ORDERED: HE Stain/18, Gross Micro L4/6, IHC, Special st. 2/3, H. pylori, Eso bx BA w/exc, AB/PAS/3 COMMENTS: 7 unstained slides (C) sent to [facility] for [facility] on 06/30/25. Diagnosis (Continued) F. [...] BallardArthur mcrae Age/Sex: 54/M : 1970 Unit#: [id number] Attend Dr: Hannah Soriano MD Re06/28/25 Status: [facility] Location: [facility] Disch: ----- ------- SPEC : [id number] RECD: 06/28/25 STATUS: IDANIA GARCIA NUM: [id number] REI: 06/28/25 [facility] DR: Hannah Soriano MD ENTERED: 06/28/25 SP TYPE: Surgical OTHR DR: Rodri Razo MD ORDERED: HE Stain/18, Gross Micro L4/6, IHC, Special st. 2/3, H. pylori, Eso bx BA w/exc, AB/PAS/3 COMMENTS: 7 unstained slides (C) sent to [facility] for [facility] on 06/30/25. Gross Description (Continued) [...] developed and their performance characteristics determined by [facility]. They have not been cleared or approved by the U.S. Food and Drug Administration (FDA). However, the FDA has determined that such clearance or approval is not necessary. This laboratory is certified under the Clinical Laboratory Improvement Amendments of 1988 (CLIA) as qualified to perform high complexity clinical laboratory testing. Copies To: Rodri Razo MD [address] [address] Hannah Soriano MD [facility] [address] [place] [phone] [email or web address] CONTINUED ON NEXT PAGE ----- ------- Name: Arthur Dacosta Age/Sex: 54/M : 1970 Unit#: [id number] Attend Dr: Hannah Soriano MD Re06/28/25 Status: [facility] Location: [facility] Disch: ----- ------- SPEC : [id number] RECD: 06/28/25 STATUS: IDANIA GARCIA NUM: [id number] REI: 06/28/25 [facility] DR: Hannah Soriano MD ENTERED: 06/28/25 SP TYPE: Surgical OTHR DR: Rodri Razo MD ORDERED: HE Stain/18, Gross Micro L4/6, IHC, Special st. 2/3, H. pylori, Eso bx BA w/exc, AB/PAS/3 COMMENTS: 7 unstained slides (C) sent to [facility] for [facility] on 06/30/25. ----- ------- Signed (signature on file) Bnejamin Valenzuela MD 06/30/25 0938 ----- ------- END OF REPORT us Generic External Data Provider LAB BLOOD ORDERAB LES Final Result [facility] [address] [place] [phone] * CT Pelvis w/o Contrast (05/27/2025 11:08 AM EDT) Anatomical Region Laterality Modality Body, Pelvis Computed Tomogra phy 05/27/2025 11:0 8 AM EDT Narrative 05/27/2025 12:13 PM EDT [address] [address] [address] Scan Report Signed Patient: Arthur Dacosta MR#: [id number] : 1970 Acct:[id number] Age/Sex: 54 / M ADM Date: 05/27/25 Loc: HO.CT Attending Dr: Juan Jose Loaiza MD Ordering Physician: Juan Jose Loaiza MD Date of Service: 05/27/25 Procedure(s): CT pelvis wo IV con Accession Number(s): [id number] cc: Rodri Razo MD; Juan Jose Loaiza MD Report Number: [id number]: Total DLP = 622.00 mGy-cm EXAMINATION: CT [...] 05/27/25 1210 DD/ 1108 TD/TT: 05/27/25 1145 Commercial Director: Procedure Note Donotuseinterpreter, Image - 05/27/[address] [place] [address] [address] Scan Report Signed Patient: Isatu Dacosta#: [id number] : 1970Acct:[id number] Age/Sex: 54 / MADM Date: 05/27/25 Loc: .CT Attending Dr: Juan Jose Loaiza MD Ordering Physician: Juan Jose Loaiza MD Date of Service: 05/27/25 Procedure(s): CT pelvis wo IV con Accession Number(s): [id number] cc: Rodri Razo MD; Juan Jose Loaiza MD Report Number: [id number]: Total DLP = 622.00 mGy-cm EXAMINATION: CT [...] 05/27/25 1210 DD/ 1108 TD/TT: 05/27/25 1145 Commercial Director: [facility] External Provider IMG CT PROCEDURES Edited Result - Final * (ABNORMAL) Cologuard?? colon cancer screening (04/21/2025 10:40 AM EDT) Cologuard Result Positive( A) Negative 04/25/2025 8:46 PM EDT [facility] (CLIA #:[id number]) Comment: The Cologuard (TM) test was performed [...] Robertson. et al, N Engl J Med 2014;370(14):6961-7803.) Cologuard may produce a false negative or false positive result (no colorectal cancer or precancerous polyp present at colonoscopy follow up). A negative Cologuard test result does not guarantee the absence of CRC or advanced adenoma (pre-cancer). The current Cologuard screening interval is every 3 years. ([place] Cancer Society and U.S. Multi-Society Task Force). Cologuard performance data in a 10,000 patient pivotal study using colonoscopy as the reference method can be accessed at the following location: www.[employer].com/results. Additional description of the Cologuard test process, warnings and precautions can be found at www.cologaloomard.com. Stool specimen (specimen) 04/21/2025 10:40 AM EDT 04/22/2025 12:50 PM EDT Rodri Douglass MD LAB MOLECULAR DIAG NOSTICS ORDERABLES Final Result Performing Organization Address City/[facility]/ZIP Co de Phone Number [facility] (CLIA #:[id number]) [address] [place] [address], * Hepatitis C Antibody with Reflex to HCV, RNA, Quantitative, Real-Time PCR (04/15/2025 9:40 AM EDT) Hepatitis C Antibody Nonreactive Nonreactive [facility] Comment:Antibodies to HCV no t detected; does not exclude early acuteHCV infection. Blood Venous blood specimen / Unknown 04/15/2025 9:40 AM EDT 04/15/2025 2:02 PM EDT Rodri Douglass MD LAB BLOOD ORDERABL ES Final Result Performing Organization Address [facility] Co de Phone Number [facility] [address] [place] [phone] * HIV-1/2 Antigen and Antibodies, Fourth Generation, with Reflexes (04/15/2025 9:40 AM EDT) HIV AB/AG Nonreactive Nonreactive [facility] Comment:HIV-1 p24 Ag and/or HIV-1/HIV-2 Ab not detected.A test result that is nonreactive does not exclude thepossibility of exposure to or infection with HIV-1 and/orHIV-2. Nonreactive results in this assay for individualswith prior exposure to HIV-1 and/or HIV-2 may be due toantigen and antibody levels that are below the limit ofdetection of this assay.The [employer] HIV Ag/Ab Combo assay result andsupplemental assay results should be interpreted inconjunction with the patient's clinical presentation,history and other laboratory results. If the results areinconsistent with clinical evidence, additional testing issuggested to confirm the result. Blood Venous blood specimen / Unknown 04/15/2025 9:40 AM EDT 04/15/2025 2:02 PM EDT Rodri Douglass MD LAB BLOOD ORDERABL ES Final Result Performing Organization Address [facility] Co de Phone Number [facility] [address] [place] [phone] * (ABNORMAL) Hemoglobin A1c (04/15/2025 9:00 AM EDT) Hemoglobin A1c 6.1(H) <6.0 % [facility] Comment:Hemoglobin A1C Refer ence Range Adults: 4.8 - 6.0 % Non diabetic: < 6.0 % Goal: < 7.0 %Additional Action Suggested: > 8.0 %Note: Hemoglobin A1c results are invalid for patients with abnormal amounts of HbF. Blood transfusions may impact the HbA1c concentration in the patient sample. Estimated Average Glucose 128 mg/dL [facility] Comment:eAG = Estimated ave rage glucose which is %A1C expressed asaverage glucose, using the formula of the B1G-PwvoyfdVyndyos Glucose study (ADAG), Diabetes Care, Vol.31,#8,Jun. 2007 Blood Venous blood specimen / Unknown 04/15/2025 9:00 AM EDT 04/15/2025 2:02 PM EDT us Rodri Douglass MD LAB BLOOD ORDERABL ES Final Result Performing Organization Address [facility] Co de Phone Number [facility] [address] [place] [phone] * Lipid Panel, Standard (04/15/2025 9:00 AM EDT) Triglycerides 108 <150 mg/dL [facility] Comment:Desirable Triglyceri de: less than 150 mg/dLBorderline High Triglyceride 150-199 mg/dLHigh Triglyceride: 200-499 mg/dLVery High Triglyceride: greater than or equal to 5OO mg/dL Cholesterol 166 <200 mg/dL [facility] Comment:Desirable Cholestero l: less than 200 mg/dLBorderline High Cholesterol: 200-239 mg/dLHigh Cholesterol: greater than 239 mg/dL LDL Cholesterol Calculated 92 <100 mg/dL [facility] Comment:Desirable LDL: less than 100 mg/dLNear Optimal/Above Optimal LDL: 110- 129 mg/dLBorderline High LDL: 130-159 mg/dLHigh LDL: 160-189 mg/dLVery High LDL: greater than or equal to 190 mg/dL HDL Cholesterol 53 >40 mg/dL [facility] Comment:Desirable HDL: great er than 40 mg/dL Note: This HDL assay may give artificially low results in patients with liver disease. Blood Venous blood specimen / Unknown 04/15/2025 9:00 AM EDT 04/15/2025 2:05 PM EDT Rodri Douglass MD LAB BLOOD ORDERABL ES Final Result [facility] [address] [place] [phone] [phone] from Last 3 Months or Most Recently Relevant to Health Maintenance Insurance Care Teams Digital Director Relationship Specialty Start Date End Date Rodri Razo MD [address] [place] [address] PETRA Crow [address] PCP - General Internal Medicine 02/01/25
== END 2025-08-02 13:30 | disposition home or self-care (01) ==
LOC: HO.HGS 13:17
PROVIDERS: PCP Internal Medicine
DX: Z98.890 Other specified postprocedural states (principal); Z87.19 Personal history of other diseases of the digestive system
CPT/HCPCS: 99024

== ENCOUNTER → 2025-08-02 13:16 | Outpatient (BNVA) | payer OTHER, SELFPAY | PROVIDERS: PCP Internal Medicine | DX: Z48.815 Encounter for surgical aftercare following surgery on the digestive system (principal); R10.32 Left lower quadrant pain; Z98.890 Other specified postprocedural states; Z87.19 Personal history of other diseases of the digestive system | CPT/HCPCS: 99212 ==

== ENCOUNTER 2025-08-22 08:48 | Outpatient (AMB) | payer OTHER, SELFPAY ==
[2025-08-22 09:10] VITALS: BP 148/82; PULSE 84; BMI 24.7
--- NOTE | 2025-08-22 09:10 | AM.OFFVISNUR ---
Vital Signs 08/22/25 09:10 Height 5 ft 7 in Weight 158 lb BMI 24.7 BP 148/82 H Blood Pressure Location Lt brachial Position Sitting Pulse 84 Intake Visit Reasons: h pylori Allergies No Known Allergies Allergy (Verified 08/22/25 09:10) Nursing Note Patient presents for collection of?H Pylori?breath test. Patient has been fasting for 1 hour (nothing to eat, drink, no chewing gum or smoking) has not taken any antacid medication for at least 2 weeks and has no allergies to artificial sweeteners.?? Assessment & Plan Assessment & Plan (1) Positive H. pylori test: Code(s): A04.8 - Other specified bacterial intestinal infections Category: Medical Plan Patient presents for collection of?H Pylori?breath test. Patient has been fasting for 1 hour (nothing to eat, drink, no chewing gum or smoking) has not taken any antacid medication for at least 2 weeks and has no allergies to artificial sweeteners.???This test checks for an overgrowth of bacteria in your stomach. We all have bacteria but some may have more than others. It is treatable. if the test comes back negative there is nothing else to do. If the test result is positive we will treat you with 2 antibiotics and a medication to decrease the acid in your stomach (PPI) for 2 weeks. Two weeks after you have completed the treatment we will retest you to make sure the overgrowth has resolved. Patient Instructions: Process for specimen collection and reason for testing was explained to the patient. Specimen collection. Patient instructed to take a deep breath and then exhale into the blue bag, filling it up as much as possible. Patient instructed to drink a mixture of water and the artificial sweetener with a straw. A 15 minute wait period was observed. Patient instructed to take a deep breath and then exhale into the pink bag, filling it up as much as possible.?? Coding Level of Care Code Established Pt Est Pt Level 1 (18525) Patient Type Established Diagnoses Positive H. pylori test A04.8
== END 2025-08-22 10:22 | disposition home or self-care (01) ==
LOC: HO.HGI 08:49
PROVIDERS: PCP Internal Medicine; Visit Provider Nurse Practitioner Family
DX: A04.8 Other specified bacterial intestinal infections (principal)

== ENCOUNTER 2025-08-22 08:48 | Outpatient (REF) | payer OTHER, SELFPAY ==
--- OUTSIDE RECORDS SUMMARY | 2025-08-22 20:42 | XMS_ITS | Clinical Summary ---
Author Organization [employer] Address 75 [facility] 7t [place] [address] Care Team Providers Care Creative Specialist Name Role Phone Rodri Razo MD Primary Care Prov ider Allergies No known active allergies Medications Blood Pressure kit 1 kit Once per day. 1 kit 5 Active hydroCHLOROthia zide (HYDRODiuril) 25 MG tablet Take 1 tablet (25 mg) by mouth Once per day. 90 tablet 3 5 07/05/20 26 Active Diclofenac Sodium (Voltaren) 1 % gel Apply 1 g topically 2 times daily. 350 g 3 5 Active Active Problems Problem Noted Date Diagnosed Date [...] Description 07/05/2025 10:30 AM EDT Telemedicine [facility] [address] [place] [address] Rodri Razo MD Primary hypertension (Primary Dx); Chronic pain of left knee 07/05/2025 Travel 06/01/2025 3:00 PM EDT Telemedicine [facility] [address] [place] [address] Rodri Razo MD Primary hypertension (Primary Dx) 06/01/2025 Travel 05/31/2025 Telephone [facility] [address] [place] [address] Rodri Razo MD Chart Prep 05/27/2025 Orders Only [facility] External Provider, [facility] from Last 3 Months Family History Medical [...] 9:01 AM EDT 07/20/2025 10:18 AM EDT [facility] - 07/21/2025 2:24 PM EDT ----- ------- Name: Arthur Dacosta Age/Sex: 54/M : 1970 Unit#: [id number] Attend Dr: Juan Jose Loaiza MD Re07/20/25 Status: [facility] Location: [facility] Disch: ----- ------- SPEC : [id number] RECD: 07/20/25-1018 STATUS: IDANIA GARCIA NUM: [id number] REI: 07/20/25-[address] [facility] [address]: Juan Jose Loaiza MD ENTERED: [...] 5.0 x 0.1-0.3 cm. Sectioning reveals edematous, malnoe-pink and pink-maroon cut surfaces with the fibromembranous tissue measuring up to 0.1 cm in thickness. Also received is a 10.0 x 7.0 x 0.5-2.0 cm portion of reyes-yellow lobular adipose tissue, consistent with omentum with scant attached thin and delicate fibromembranous tissue. Sectioning reveals homogeneous reyes-yellow lobular adipose tissue. No fleshy, hemorrhagic or necrotic foci are identified. No lymph nodes are identified. Preparation Supervisor sections are submitted in cassettes A1 and A2. [facility] IHC S/NG Disclaimer NOTE: Unless otherwise stated, all tissue is formalin-fixed and paraffin-embedded. Some or all of the immunohistochemical tests reported herein may have been developed and their performance characteristics determined by [facility]. They have not been cleared [...] Arthur Dacosta Age/Sex: 54/M : 1970 Unit#: [id number] Attend Dr: Juan Jose Loaiza MD Re07/20/25 [place] [facility] [place] Location: [facility] Disch: ----- ------- SPEC : [id number] RECD: 07/20/251018 STATUS: IDANIA GARCIA NUM: [id number] REI: 07/20/25-[address]: Juan Jose Loaiza MD ENTERED: 07/20/25-1037 SP TYPE: Surgical OTHR DR: Rodri Razo MD ORDERED: Gross Micro L2 Copies To: Rodri Razo MD [address] [address] Juan Jose Loaiza MD [facility] [address] [place] [address] ----- ------- Signed (signature on file) Ursula Stephens MD 07/21/25 1424 ----- ------- END OF REPORT Generic External Data Provider LAB CYTOLOGY JOSE MARVIN Final Result [facility] [address] [place] [phone] * Hematoxylin and Eosin Stain (06/28/2025 9:15 AM EDT) 06/28/2025 9:15 AM EDT 06/28/2025 9:45 AM EDT Joann [facility] - 07/15/2025 8:37 AM EDT ----- ------- Name: Arthur Dacosta Age/Sex: 54/M : 1970 Unit#: [id number] Attend Dr: Hannah Soriano MD Re06/28/25 Status: [facility] Location: [facility] Disch: ----- ------- SPEC : [id number] RECD: 06/28/25 STATUS: IDANIA GARCIA NUM: [id number] REI: 06/28/[address] [facility] [address]: Hannah Soriano MD ENTERED: 06/28/25 SP TYPE: Surgical OTHR DR: Rodri Razo MD ORDERED: HE Stain/18, Gross Micro L4/6, IHC, Special st. 2/3, H. pylori, Eso bx BA w/exc, AB/PAS/3 COMMENTS: 7 unstained slides (C) sent to [facility] for [facility] on 06/30/25. Addendum Addendum 2 Entered: 07/15/25 [facility] (C): Risk class Low; risk score 1.3 See report in its entirety in the EMR - Reports/Pathology section as a scanned report (camera icon). If appropriate, a copy has also been sent to the ordering provider's office. Addendum Signed (signature on file) Benjamin Valenzuela MD 07/15/25 0837 ----- ------- Addendum 1 Entered: 06/30/25-48 [facility]. Addendum Signed (signature on file) Benjamin Valenzuela MD 06/30/25 0949 ----- ------- Diagnosis A. Duodenum, biopsy: Duodenal [...] ON NEXT PAGE ----- ------- Name: Logan FernandezArthur Age/Sex: 54/M : 1970 Unit#: [id number] Attend Dr: Hannah Soriano MD Re06/28/25 Status: [facility] Location: [facility] Disch: ----- ------- SPEC : [id number] RECD: 06/28/25 STATUS: IDANIA GARCIA NUM: [id number] REI: 06/28/[address] [facility] [address]: Hannah Soriano MD ENTERED: 06/28/25 SP TYPE: Surgical OTHR DR: Rodri Razo MD ORDERED: HE Stain/18, Gross Micro L4/6, IHC, Special st. 2/3, H. pylori, Eso bx BA w/exc, AB/PAS/3 COMMENTS: 7 unstained slides (C) sent to [facility] for [facility] on 06/30/25. Diagnosis (Continued) F. [...] CONTINUED ON NEXT PAGE ----- ------- Name: Arhtur Dacosta Age/Sex: 54/M : 1970 Unit#: [id number] Attend Dr: Hannah Soriano MD Re06/28/25 Status: [facility] Location: [facility] Disch: ----- ------- SPEC : [id number] RECD: 06/28/25 STATUS: IDANIA GARCIA NUM: [id number] REI: 06/28/[address] [facility] [address]: Hannah Soriano MD ENTERED: 06/28/25 SP TYPE: Surgical OTHR DR: Rodri Razo MD ORDERED: HE Stain/18, Gross Micro L4/6, IHC, Special st. 2/3, H. pylori, Eso bx BA w/exc, AB/PAS/3 COMMENTS: 7 unstained slides (C) sent to [facility] for [facility] on 06/30/25. Gross Description (Continued) [...] microscopic examination, 2 pieces in cassette F. ([facility]) Special studies ordered and performed: Immunostain for H. pylori on B; AB/PAS stains on A, B and C IHC S/NG Disclaimer NOTE: Unless otherwise stated, all tissue is formalin-fixed and paraffin-embedded. Some or all of the immunohistochemical tests reported herein may have been developed and their performance characteristics determined by [facility]. They have not been cleared or approved by the U.S. Food and Drug Administration (FDA). However, the FDA has determined that such clearance or approval is not necessary. This laboratory is certified under the Clinical Laboratory Improvement Amendments of 1988 (CLIA) as qualified to perform high complexity clinical laboratory testing. Copies To: Rodri Razo MD [address] [id number] Hannah Soriano MD [facility] [address] [place] [address] [phone] [email or web address] Management CONTINUED ON NEXT PAGE ----- ------- Name: Logan FernandezArtuhr Age/Sex: 54/M : 1970 Unit#: [id number] Attend Dr: Hannah Soriano MD Re06/28/25 [place] [facility] [place] Location: [facility] Disch: ----- ------- SPEC : [id number] RECD: 06/28/2545 STATUS: IDANIA GARCIA NUM: [id number] REI: 06/28/[address] [facility] [address]: Hannah Soriano MD ENTERED: 06/28/25 SP TYPE: Surgical OTHR DR: Rodri Razo MD ORDERED: HE Stain/18, Gross Micro L4/6, IHC, Special st. 2/3, H. pylori, Eso bx BA w/exc, AB/PAS/3 COMMENTS: 7 unstained slides (C) sent to [facility] for [facility] on 06/30/25. ----- ------- Signed (signature on file) Benjamin Valenzuela MD 06/30/25 0938 ----- ------- END OF REPORT us Generic External Data Provider LAB BLOOD ORDERAB LES Final Result [facility] [address] [place] [phone] * CT Pelvis w/o Contrast (05/27/2025 11:08 AM EDT) Anatomical Region Laterality Modality Body, Pelvis Computed Tomogra phy 05/27/2025 11:0 8 AM EDT Narrative 05/27/2025 12:13 PM EDT [address] [address] [address] Scan Report Signed Patient: Arthur Dacosta MR#: [id number] : 1970 Acct:[id number] Age/Sex: 54 / M ADM Date: 05/27/25 Loc: HO.CT Attending Dr: Juan Jose Loaiza MD Ordering Physician: Juan Jose Loaiza MD Date of Service: 05/27/25 Procedure(s): CT pelvis wo IV con Accession Number(s): [id number] cc: Rodri Razo MD; Juan Jose Loaiza MD Report Number: [id number]: Total DLP = 622.00 mGy-cm EXAMINATION: CT [...] 05/27/25 1210 DD/ 1108 TD/TT: 05/27/25 1145 Cementing Machine Operator: Procedure Note Donotuseinterpreter, Image - 05/27/[address] [address] [address] Scan Report Signed Patient: Arthur Dacosta#: [id number] : 1970Acct:[id number] Age/Sex: 54 / MADM Date: 05/27/25 Loc: HO.CT Attending Dr: Juan Jose Loaiza MD Ordering Physician: Juan Jose Loaiza MD Date of Service: 05/27/25 Procedure(s): CT pelvis wo IV con Accession Number(s): [id number] cc: Rodri Razo MD; Juan Jose Loaiza MD Report Number: [id number]: Total DLP = 622.00 mGy-cm EXAMINATION: CT [...] 05/27/25 1210 DD/ 1108 TD/TT: 05/27/25 1145 Cementing Machine Operator: [facility] External Provider IMG CT PROCEDURES Edited Result - Final * (ABNORMAL) Cologuard?? colon cancer screening (04/21/2025 10:40 AM EDT) Cologuard Result Positive( A) Negative 04/25/2025 8:46 PM EDT [employer] (CLIA #:[id number]) Comment: The Cologuard (TM) test was performed [...] screened with both Cologuard and colonoscopy. (Dick Sprague et al, N Engl J Med 2014;370(14):0547-0875.) Cologuard may produce a false negative or false positive result (no colorectal cancer or precancerous polyp present at colonoscopy follow up). A negative Cologuard test result does not guarantee the absence of CRC or advanced adenoma (pre-cancer). The current Cologuard screening interval is every 3 years. ([place] Cancer Society and U.S. Multi-Society Task Force). Cologuard performance data in a 10,000 patient pivotal study using colonoscopy as the reference method can be accessed at the following location: www.Noonswoon/results. Additional description of the Cologuard test process, warnings and precautions can be found at www.[employer] Industriesoglarkrd.RotaBan. Stool specimen (specimen) 04/21/2025 10:40 AM EDT 04/22/2025 12:50 PM EDT us Rodri Douglass MD LAB MOLECULAR DIAG NOSTICS ORDERABLES Final Result [facility] (CLIA #:[id number]) [address] [place] [address], * Hepatitis C Antibody with Reflex to HCV, RNA, Quantitative, Real-Time PCR (04/15/2025 9:40 AM EDT) Hepatitis C Antibody Nonreactive Nonreactive [facility] Comment:Antibodies to HCV no t detected; does not exclude early acuteHCV infection. Blood Venous blood specimen / Unknown 04/15/2025 9:40 AM EDT 04/15/2025 2:02 PM EDT us Rodri Douglass MD LAB BLOOD ORDERABL ES Final Result Performing Organization Address [facility]/ZIP Co de Phone Number [facility] [address] [place] [phone] * HIV-1/2 Antigen and Antibodies, Fourth Generation, with Reflexes (04/15/2025 9:40 AM EDT) HIV AB/AG Nonreactive Nonreactive [facility] Comment:HIV-1 p24 Ag and/or HIV-1/HIV-2 Ab not detected.A test result that is nonreactive does not exclude thepossibility of exposure to or infection with HIV-1 and/orHIV-2. Nonreactive results in this assay for individualswith prior exposure to HIV-1 and/or HIV-2 may be due toantigen and antibody levels that are below the limit ofdetection of this assay.The [employer] HIV Ag/Ab Combo assay result andsupplemental assay results should be interpreted inconjunction with the patient's clinical presentation,history and other laboratory results. If the results areinconsistent with clinical evidence, additional testing issuggested to confirm the result. Blood Venous blood specimen / Unknown 04/15/2025 9:40 AM EDT 04/15/2025 2:02 PM EDT Rodri Douglass MD LAB BLOOD ORDERABL ES Final Result Performing Organization Address [facility] Co de Phone Number [facility] [address] [place] [phone] * (ABNORMAL) Hemoglobin A1c (04/15/2025 9:00 AM EDT) Hemoglobin A1c 6.1(H) <6.0 % [facility] Comment:Hemoglobin A1C Refer ence Range Adults: 4.8 - 6.0 % Non diabetic: < 6.0 % Goal: < 7.0 %Additional Action Suggested: > 8.0 %Note: Hemoglobin A1c results are invalid for patients with abnormal amounts of HbF. Blood transfusions may impact the HbA1c concentration in the patient sample. Estimated Average Glucose 128 mg/dL [facility] Comment:eAG = Estimated ave rage glucose which is %A1C expressed asaverage glucose, using the formula of the X2Z-CjmdxlrCgewctg Glucose study (ADAG), Diabetes Care, Vol.31,#8,Jun. 2007 Blood Venous blood specimen / Unknown 04/15/2025 9:00 AM EDT 04/15/2025 2:02 PM EDT us Rodri Douglass MD LAB BLOOD ORDERABL ES Final Result Performing Organization Address City/[facility] Co de Phone Number [facility] [address] [place] [phone] * Lipid Panel, Standard (04/15/2025 9:00 AM EDT) Triglycerides 108 <150 mg/dL [facility] Comment:Desirable Triglyceri de: less than 150 mg/dLBorderline High Triglyceride 150-199 mg/dLHigh Triglyceride: 200-499 mg/dLVery High Triglyceride: greater than or equal to 5OO mg/dL Cholesterol 166 <200 mg/dL [facility] Comment:Desirable Cholestero l: less than 200 mg/dLBorderline High Cholesterol: 200-239 mg/dLHigh Cholesterol: greater than 239 mg/dL LDL Cholesterol Calculated 92 <100 mg/dL [facility] Comment:Desirable LDL: less than 100 mg/dLNear Optimal/Above Optimal LDL: 110- 129 mg/dLBorderline High LDL: 130-159 mg/dLHigh LDL: 160-189 mg/dLVery High LDL: greater than or equal to 190 mg/dL HDL Cholesterol 53 >40 mg/dL [facility] Comment:Desirable HDL: great er than 40 mg/dL Note: This HDL assay may give artificially low results in patients with liver disease. Blood Venous blood specimen / Unknown 04/15/2025 9:00 AM EDT 04/15/2025 2:05 PM EDT us Rodri Douglass MD LAB BLOOD ORDERABL ES Final Result Performing Organization Address City/[facility]/ZIP Co de Phone Number [facility] [address] [place] [phone] from Last 3 Months or Most Recently Relevant to Health Maintenance Insurance [facility] [id number] Care Teams Creative Specialist Relationship Specialty Start Date End Date Rodri Razo MD [address] [place] [address] [place] [address] PCP - General Internal Medicine 02/01/25
--- OUTSIDE RECORDS SUMMARY | 2025-08-22 20:42 | XMS_ITS | Encounter Summary ---
Author Organization [email or web address] Address [address] [facility] 7 [place] [address] Care Team Providers Care Muck Operator Name Role Phone Rodri Razo MD Primary Care Prov ider Reason for Visit * Reason Onset Date Comments Referral 05/13/2025 Encounter Details Date Type Department Care Team ([facility] st Contact Info) Description 05/13/2025 Telephone [facility] MED & PEDS [address] [place] [address] Rodri Razo MD [address] [place] [address] Referral Social History Tobacco Use Types Packs/Day [...] PM EDT Tc from spouse reporting that [facility] has not received the referral for the Gastro. Please fax over the referral again. documented in this encounter Plan of Treatment Not on file documented as of this encounter Visit Diagnoses Not on filedocumented in this encounter Additional Health Concerns Assessment Noted Time PHQ-9 Depression Total Score: 2 01/28/20 9:02 AM EDT documented as of this encounter Care Teams Muck Operator Relationship Specialty Start Date End Date Rodri Razo MD [address] [place] [phone] PCP - General Internal Medicine 02/01/25 documented as of this encounter
== END 2025-08-22 08:49 | disposition home or self-care (01) ==
LOC: HO.LNP 08:48
PROVIDERS: PCP Internal Medicine; Visit Provider Nurse Practitioner Family
DX: Z11.0 Encounter for screening for intestinal infectious diseases (principal)
CPT/HCPCS: 83013; 99211

== ENCOUNTER 2025-09-05 11:30 | Outpatient (AMB) | payer OTHER, SELFPAY ==
--- NOTE | 2025-09-05 11:37 | MHC.OFFVIS ---
Vital Signs 09/05/25 11:38 Height 5 ft 7 in Weight 156 lb BMI 24.4 BP 136/76 Blood Pressure Location Lt brachial Position Sitting Pulse 99 Intake Visit Reasons: s/p LIH w/mesh Intake Note: Patient here 1mo follow up. LUKE (RICARDO): 08-02-2025. S/p repair of large left inguinal hernia with mesh. Patient c/o: no concerns. Reports incision healed well. No problems w/ BM or urinating. Surgery: (ROYA) 07-20-2025 Automation And Controls Manager Required: Yes Information Interpreted: clinical only (Khushboo APARICIO) Accompanied by: Self / Same As Patient Allergies No Known Allergies Allergy (Verified 09/05/25 11:39) HPI HPI s/p LIH w/mesh: Details: Doing well, no concerns. Denies pain. Diet and bowel function at baseline. No concerns with the incision site, denies drainage, redness. Denies fevers at home. Has been avoiding heavy lifting [facility] Medical History Left inguinal hernia (07/20/25) Colon polyp, hyperplastic Meyers's esophagus determined by biopsy Positive H. pylori test Acid reflux Anemia Surgical History Hx of hernia repair History of esophagogastroduodenoscopy (EGD) Hx of colonoscopy Family History Father Cancer of unknown origin Brother Prostate cancer Social History Are you a primary hearing care practitioner to a significant other at home: No Do you presently have visiting nurse or other home services: No Alcohol intake: never Patient Tobacco Use Status: Former Tobacco user Second Hand Smoke Exposure: No Physical Exam Vital Signs: Last Vital Signs Pulse 99 09/05/25 11:38 BP 136/76 09/05/25 11:38 BMI result Body Mass Index 24.4 Const General: comfortable and no acute distress Orientation/consciousness: patient oriented x3 GI Other: Left inguinal hernia repair site healed well., nontender, no fluctuance, no erythema. No recurrence on Valsalva. Palpation (GI): Soft to palpation and nontender Neuro General: patient oriented x3 Assessment & Plan Assessment & Plan (1) S/P inguinal hernia repair: Comment: Left, July 2025 Dr. Loaiza Code(s): Z98.890 - Other specified postprocedural states; Z87.19 - Personal history of other diseases of the digestive system Category: Surgical Plan 54-year-old male s/p left inguinal hernia repair on 07/20/[address] Loaiza returning to the office for routine follow up. Overall he reports he is doing very well, has no complaints. Denying pain. Otherwise his appetite and bowel function are at baseline, denies nausea or vomiting. he denies fevers or chills. He reports no concerns with the incision site, denies drainage or bleeding. On exam the abdomen is soft and benign the incision site appears to be healing well, incision site is clean dry and intact no concern for infection at this time. There was no evidence of recurrence on Valsalva. He has not been doing heavy lifting, he is okay to resume activity as tolerated, recommended starting at about half of his baseline and progressing back towards his baseline level activity over the next few weeks. He is agreeable to this plan. No longer requiring follow up, can follow up as needed with any concerns in the future. Coding Level of Care Code Global (58252) Diagnoses S/P inguinal hernia repair Z98.890; Z87.19
[2025-09-05 11:38] VITALS: BP 136/76; PULSE 99; BMI 24.4
--- OUTSIDE RECORDS SUMMARY | 2025-09-05 14:36 | XMS_ITS | Encounter Summary ---
Author Organization [employer] Address [address] [facility] 7 [place] [address] Care Team Providers Care Director Nicu Name Role Phone Rodri Razo MD Primary Care Prov ider Reason for Visit * Reason Onset Date Comments Referral 05/13/2025 Encounter Details Date Type Department Care Team ([facility] st Contact Info) Description 05/13/2025 Telephone [facility] MED & PEDS [address] [place], [place] [phone] Rodri Razo MD [address] [place] [address] Referral Social History Tobacco Use Types Packs/Day [...] PM EDT Tc from spouse reporting that [facility] has not received the referral for the Gastro. Please fax over the referral again. documented in this encounter Plan of Treatment Not on file documented as of this encounter Visit Diagnoses Not on filedocumented in this encounter Additional Health Concerns Assessment Noted Time PHQ-9 Depression Total Score: 2 01/28/20 9:02 AM EDT documented as of this encounter Care Teams Director Nicu Relationship Specialty Start Date End Date Rodri Razo MD [address] [place] [phone] PCP - General Internal Medicine 02/01/25 documented as of this encounter
--- OUTSIDE RECORDS SUMMARY | 2025-09-05 14:37 | XMS_ITS | Clinical Summary ---
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 Phone Rodri Razo MD Primary [...] Team Description 07/05/2025 10:30 AM EDT Telemedicine [facility] [address] [place] [address] Rodri Razo MD Primary hypertension (Primary Dx); Chronic pain of left knee 07/05/2025 Travel from Last 3 Months Family History Medical [...] Procedure Name Priority Date/Time Associated Diagnosis Comments HELICOBACTER PYLORI, UREA BREATH TEST Routine 08/22/2025 10:15 AM EDT GROSS AND MICROSCOPIC LEVEL 2 Routine 07/20/2025 9:01 AM EDT HEMATOXYLIN AND EOSIN STAIN Routine 06/28/2025 9:15 AM EDT LAB COLOGUARD COLON CANCER SCREEN [...] Recently Relevant to Health Maintenance Results * Helicobacter pylori, Urea Breath Test (08/22/2025 10:15 AM EDT) H. pylori Breath Test Negative Negative [facility] Comment:Antimicrobials, prot on pump inhibitors and bismuthpreparations are known to suppress H. pylori. Ingestingthese medications within two weeks prior to performing thebreath test may produce negative test results. A positiveresult is still clinically valid. 08/22/2025 10:1 5 AM EDT 08/22/2025 4:43 PM EDT us Generic External Data Provider LAB BODY FLUIDS A ND STOOLS ORDERABLES Final Result [facility] [address] [place] [phone] * Gross and Microscopic Level 2 (07/20/2025 9:01 AM EDT) 07/20/2025 9:01 AM EDT 07/20/2025 10:18 AM EDT [facility] - 07/21/2025 2:24 PM EDT ----- ------- Name: Logan FernandezArthur Age/Sex: 54/M : 1970 Unit#: [id number] Attend Dr: Juan Jose Loaiza MD Re07/20/25 Status: [facility] Location: [facility] Disch: ----- ------- SPEC : [id number] RECD: 07/20/25-8 STATUS: IDANIA TERRELLNaye NUM: [id number] REI: 07/20/25-[address] [facility] [address]: Juan Jose Loaiza MD ENTERED: 07/20/25-1037 [...] are identified. No lymph nodes are identified. Wig Stylist sections are submitted in cassettes A1 and A2. [facility] IHC S/NG Disclaimer NOTE: Unless otherwise stated, all tissue is formalin-fixed and paraffin-embedded. Some or all of the immunohistochemical tests reported herein may have been developed and their performance characteristics determined by [facility]. They have not been cleared [...] Arthur Dacosta Age/Sex: 54/M : 1970 Unit#: [id number] Attend Dr: Juan Jose Loaiza MD Re07/20/25 Status: [facility] Location: [facility] Disch: ----- ------- SPEC : [id number] RECD: 07/20/25-1018 STATUS: IDANIA GARCIA NUM: [id number] REI: 07/20/[address]: Juan Jose Loaiza MD ENTERED: 07/20/25-1037 SP TYPE: Surgical OTHR DR: Rodri Razo MD ORDERED: Gross Micro L2 Copies To: Rodri Razo MD [address] [address] Juan Jose Loaiza MD [facility] [address] [place] [phone] ----- ------- Signed (signature on file) Ursula Stephens MD 07/21/25 1424 ----- ------- END OF REPORT us Generic External Data Provider LAB CYTOLOGY JOSE MARVIN Final Result [facility] [address] [place] [phone] * Hematoxylin and Eosin Stain (06/28/2025 9:15 AM EDT) 06/28/2025 9:15 AM EDT 06/28/2025 9:45 AM EDT Narrative [facility] - 07/15/2025 8:37 AM EDT ----- ------- Name: Arthur Dacosta Age/Sex: 54/M : 1970 Unit#: [id number] Attend Dr: Hannah Soriano MD Re06/28/25 Status: [facility] Location: [facility] Disch: ----- ------- SPEC : [id number] RECD: 06/28/25 STATUS: IDANIA GARCIA NUM: [id number] REI: 06/28/[address] [facility] [address]: Hannah Soriano MD ENTERED: 06/28/25 SP TYPE: Surgical OTHR DR: Rodri Razo MD ORDERED: HE Stain/18, Gross Micro L4/6, IHC, Special st. 2/3, H. pylori, Eso bx BA w/exc, AB/PAS/3 COMMENTS: 7 unstained slides (C) sent to [facility] for [facility] on 06/30/25. Addendum Addendum 2 Entered: 07/15/25 [facility] (C): Risk class Low; risk score 1.3 See report in its entirety in the EMR - Reports/Pathology section as a scanned report (camera icon). If appropriate, a copy has also been sent to the ordering provider's office. Addendum Signed (signature on file) Benjamin Valenzuela MD 09/12/25 0837 ----- ------- Addendum 1 Entered: 06/30/25 [facility] Addendum Signed [...] ON NEXT PAGE ----- ------- Name: Arthur Dacsota Age/Sex: 54/M : 1970 Unit#: [id number] Attend Dr: Hannah Soriano MD Re06/28/25 Status: [facility] Location: [facility] Disch: ----- ------- SPEC : [id number] RECD: 06/28/25 STATUS: IDANIA GARCIA NUM: [id number] REI: 06/28/[address] [facility] [address]: Hannah Soriano MD ENTERED: 06/28/25 SP TYPE: Surgical OTHR DR: Rodri Razo MD ORDERED: HE Stain/18, Gross Micro L4/6, IHC, Special st. 2/3, H. pylori, Eso bx BA w/exc, AB/PAS/3 COMMENTS: 7 unstained slides (C) sent to [facility] for [facility] on 06/30/25. Diagnosis (Continued) F. [...] Logan FernandezArthur Age/Sex: 54/M : 1970 Unit#: [id number] Attend Dr: Hannah Soriano MD Re06/28/25 Status: [facility] Location: [facility] Disch: ----- ------- SPEC : [id number] RECD: 06/28/25 STATUS: IDANIA GARCIA NUM: [id number] REI: 06/28/[address] [facility] [address]: Hannah Soriano MD ENTERED: 06/28/25 SP TYPE: Surgical OTHR DR: Rodri Razo MD ORDERED: HE Stain/18, Gross Micro L4/6, IHC, Special st. 2/3, H. pylori, Eso bx BA w/exc, AB/PAS/3 COMMENTS: 7 unstained slides (C) sent to [facility] for [facility] on 06/30/25. Gross Description (Continued) [...] microscopic examination, 2 pieces in cassette F. ([facility]) Special studies ordered and performed: Immunostain for H. pylori on B; AB/PAS stains on A, B and C IHC S/NG Disclaimer NOTE: Unless otherwise stated, all tissue is formalin-fixed and paraffin-embedded. Some or all of the immunohistochemical tests reported herein may have been developed and their performance characteristics determined by [facility]. They have not been cleared or approved by the U.S. Food and Drug Administration (FDA). However, the FDA has determined that such clearance or approval is not necessary. This laboratory is certified under the Clinical Laboratory Improvement Amendments of 1988 (CLIA) as qualified to perform high complexity clinical laboratory testing. Copies To: Rodri Razo MD [address] [address] Hannah Soriano MD [facility] [address] [place] [phone] [email or web address] CONTINUED ON NEXT PAGE ----- ------- Name: Logan Fernandez Raul Age/Sex: 54/M : 1970 Unit#: [id number] Attend Dr: Hannah Soriano MD Re06/28/25 Status: [facility] Location: [facility] Disch: ----- ------- SPEC : [id number] RECD: 06/28/25 STATUS: IDANIA GARCIA NUM: [id number] REI: 06/28/[address] [facility] [address]: Hannah Soriano MD ENTERED: 06/28/25 SP TYPE: Surgical OTHR DR: Rodri Razo MD ORDERED: HE Stain/18, Gross Micro L4/6, IHC, Special st. 2/3, H. pylori, Eso bx BA w/exc, AB/PAS/3 COMMENTS: 7 unstained slides (C) sent to [facility] for [facility] on 06/30/25. ----- ------- Signed (signature on file) Benjamin Valenzuela MD 06/30/25 0938 ----- ------- END OF REPORT us Generic External Data Provider LAB BLOOD ORDERAB LES Final Result [facility] [address] [place] [phone] * (ABNORMAL) Cologuard?? colon cancer screening (04/21/2025 10:40 AM EDT) Cologuard Result Positive( A) Negative 04/25/2025 8:46 PM EDT [facility] (CLIA #:[id number]) Comment: The Cologuard (TM) test was performed [...] screened with both Cologuard and colonoscopy. (Dick Moser al, N Engl J Med 2014;370(14):8840-3722.) Cologuard may produce a false negative or false positive result (no colorectal cancer or precancerous polyp present at colonoscopy follow up). A negative Cologuard test result does not guarantee the absence of CRC or advanced adenoma (pre-cancer). The current Cologuard screening interval is every 3 years. ([place] [employer] Society and U.S. Multi-Society Task Force). Cologuard performance data in a 10,000 patient pivotal study using colonoscopy as the reference method can be accessed at the following location: www.exactlabs.com/results. Additional description of the Cologuard test process, warnings and precautions can be found at www.cologuard.com. Stool specimen (specimen) 04/21/2025 10:40 AM EDT 04/22/2025 12:50 PM EDT oRdri Douglass MD LAB MOLECULAR DIAG NOSTICS ORDERABLES Final Result Performing Organization Address City/[facility] Co de Phone Number [facility] (CLIA #:[id number]) [address] [place] [address], * Hepatitis C Antibody with Reflex to HCV, RNA, Quantitative, Real-Time PCR (04/15/2025 9:40 AM EDT) Pathologist [facility] Hepatitis C Antibody Nonreactive Nonreactive [facility] Comment:Antibodies to HCV no t detected; does not exclude early acuteHCV infection. Blood Venous blood specimen / Unknown 04/15/2025 9:40 AM EDT 04/15/2025 2:02 PM EDT Rodri Douglass MD LAB BLOOD ORDERABL ES Final Result Performing Organization Address [facility] de Phone Number [facility] [address] [place] [phone] * HIV-1/2 Antigen and Antibodies, Fourth Generation, with Reflexes (04/15/2025 9:40 AM EDT) HIV AB/AG Nonreactive Nonreactive [facility] Comment:HIV-1 p24 Ag and/or HIV-1/HIV-2 Ab not detected.A test result that is nonreactive does not exclude thepossibility of exposure to or infection with HIV-1 and/orHIV-2. Nonreactive results in this assay for individualswith prior exposure to HIV-1 and/or HIV-2 may be due toantigen and antibody levels that are below the limit ofdetection of this assay.The [employer] HIV Ag/Ab Combo assay result andsupplemental assay results should be interpreted inconjunction with the patient's clinical presentation,history and other laboratory results. If the results areinconsistent with clinical evidence, additional testing issuggested to confirm the result. Blood Venous blood specimen / Unknown 04/15/2025 9:40 AM EDT 04/15/2025 2:02 PM EDT Rodri Douglass MD LAB BLOOD ORDERABL ES Final Result Performing Organization Address [facility] Co de Phone Number [facility] [address] [place] [phone] * (ABNORMAL) Hemoglobin A1c (04/15/2025 9:00 AM EDT) Hemoglobin A1c 6.1(H) <6.0 % [facility] Comment:Hemoglobin A1C Refer ence Range Adults: 4.8 - 6.0 % Non diabetic: < 6.0 % Goal: < 7.0 %Additional Action Suggested: > 8.0 %Note: Hemoglobin A1c results are invalid for patients with abnormal amounts of HbF. Blood transfusions may impact the HbA1c concentration in the patient sample. Estimated Average Glucose 128 mg/dL [facility] Comment:eAG = Estimated ave rage glucose which is %A1C expressed asaverage glucose, using the formula of the [id number] Glucose study (ADAG), Diabetes Care, Vol.31,#8,Jun. 2007 Blood Venous blood specimen / Unknown 04/15/2025 9:00 AM EDT 04/15/2025 2:02 PM EDT us Rodri Douglass MD LAB BLOOD ORDERABL ES Final Result Performing Organization Address [facility] Co de Phone Number [facility] [address] [place] [phone] * Lipid Panel, Standard (04/15/2025 9:00 AM EDT) Triglycerides 108 <150 mg/dL [facility] Comment:Desirable Triglyceri de: less than 150 mg/dLBorderline High Triglyceride 150-199 mg/dLHigh Triglyceride: 200-499 mg/dLVery High Triglyceride: greater than or equal to 5OO mg/dL Cholesterol 166 <200 mg/dL [facility] Comment:Desirable Cholestero l: less than 200 mg/dLBorderline High Cholesterol: 200-239 mg/dLHigh Cholesterol: greater than 239 mg/dL LDL Cholesterol Calculated 92 <100 mg/dL [facility] Comment:Desirable LDL: less than 100 mg/dLNear Optimal/Above Optimal LDL: 110- 129 mg/dLBorderline High LDL: 130-159 mg/dLHigh LDL: 160-189 mg/dLVery High LDL: greater than or equal to 190 mg/dL HDL Cholesterol 53 >40 mg/dL [facility] Comment:Desirable HDL: great er than 40 mg/dL Note: This HDL assay may give artificially low results in patients with liver disease. Blood Venous blood specimen / Unknown 04/15/2025 9:00 AM EDT 04/15/2025 2:05 PM EDT us Rodri Douglass MD LAB BLOOD ORDERABL ES Final Result [facility] [address] [place] [address] [phone] from Last 3 Months or Most Recently Relevant to Health Maintenance Insurance [facility] Care Teams Wood Cut Engraver Relationship Specialty Start Date End Date RosasRodri Dillon MD [address] [place] [address] PETRA Crow [id number] PCP - General Internal Medicine 02/01/25
== END 2025-09-05 11:40 | disposition home or self-care (01) ==
LOC: HO.HGS 11:30
PROVIDERS: PCP Internal Medicine
DX: Z98.890 Other specified postprocedural states (principal); Z87.19 Personal history of other diseases of the digestive system
CPT/HCPCS: 99024

== ENCOUNTER → 2025-09-05 11:30 | Outpatient (BNVA) | payer OTHER, SELFPAY | PROVIDERS: PCP Internal Medicine | DX: Z48.815 Encounter for surgical aftercare following surgery on the digestive system (principal); Z98.890 Other specified postprocedural states; Z87.19 Personal history of other diseases of the digestive system | CPT/HCPCS: 99212 ==